=== PATIENT | female | born 1995 | race Caucasian/White ===

== ENCOUNTER 2016-08-22 21:13 | Emergency (ER) | payer MEDICAID, OTHER ==
[2016-08-22 21:19] VITALS: BP 121/76; PULSE 76; RESP 18; TEMP 98.5
--- NOTE | 2016-08-22 22:12 | ED ---
General Adult HPI - General Chief complaint: Recheck/Abnormal Lab/Rx Stated complaint: [facility] Time Seen by Provider: 08/22/16 21:26 Source: patient, RN notes reviewed Mode of arrival: ambulatory Limitations: no limitations - History of Present Illness Initial comments: Patient 20-year-old female who presents emergency room today with chief complaint of body fluid exposure. 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 States she immediately irrigated the left eye. Patient denies any other complaints or symptoms. Does admit she wears contacts. Patient denies any recent fever, chills, shortness of breath, chest pain, back pain, abdominal pain, nausea or vomiting, numbness or tingling, dysuria or hematuria, constipation or diarrhea, headaches or visual changes, or any other complaints. - Related Data Previous Rx's Medication Instructions Recorded Dicyclomine [Bentyl] 20 mg PO QID #15 tablet 01/25/15 Famotidine [Pepcid] 20 mg PO DAILY #20 tablet 01/25/15 Hydrocodone/Acetaminophen [[place] 1 each PO Q6HR PRN #20 tab 01/25/15 5-325] Ondansetron Odt [Zofran ODT] 4 mg PO Q8HR PRN #10 tab 01/25/15 Allergies Allergy/AdvReac Type Severity Reaction Status Date / Time No Known Allergies Allergy Verified 01/25/15 03:29 Review of Systems ROS Statement: Those systems with pertinent positive or pertinent negative responses have been documented in the HPI. ROS Other: All systems not noted in ROS Statement are negative. Past Medical History Past Medical History: No Reported History Additional Past Medical History / Comment(s): KIDNEY STONE History of Any Multi-Drug Resistant Organisms: None Reported Additional Past Surgical History / Comment(s): implanon Past Psychological History: No Psychological Hx Reported Smoking Status: Never smoker Past Alcohol Use History: None Reported Past Drug Use History: None Reported General Exam - General Exam Comments Initial Comments: General: The patient is awake and alert, in no distress, and does not appear acutely ill. Eye: Pupils are equal, round and reactive to light, extra-ocular movements are intact. No nystagmus. There is normal conjunctiva bilaterally. No signs of icterus. Ears, nose, mouth and throat: There are moist mucous membranes and no oral lesions. Neck: The neck is supple, there is no tenderness or JVD. Musculoskeletal: Normal ROM, no tenderness. Strength 5/5. Sensation intact. Pulses equal bilaterally 2+. Neurological: A&O x 3. CN II-XII intact, There are no obvious motor or sensory deficits. Coordination appears grossly intact. Speech is normal. Skin: Skin is warm and dry and no rashes or lesions are noted. Limitations: no limitations Course Vital Signs 08/22/16 21:16 Temperature 98.5 F Pulse Rate 76 Respiratory 18 Rate Blood Pressure 121/76 O2 Sat by Pulse 100 Oximetry Medical Decision Making - Medical Decision Making Patient's labs drawn here in emergency room. Patient's left eye irrigated here in the emergency room. Disposition Clinical Impression: Employee exposure to body fluids Disposition: HOME SELF-CARE Condition: Good Instructions: Postexposure Prophylaxis (ED) Additional Instructions: Please follow with employee health as discussed.
== END 2016-08-22 23:30 | disposition home or self-care (01) ==
LOC: EC 21:13
DX: Z77.21 Contact with and (suspected) exposure to potentially hazardous body fluids (principal); Z79.3 Long term (current) use of hormonal contraceptives; Z79.899 Other long term (current) drug therapy
CPT/HCPCS: 99283

== ENCOUNTER 2017-01-07 21:07 | Emergency (ER) | payer MEDICAID, OTHER ==
[2017-01-07 21:11] VITALS: RESP 18
--- NOTE | 2017-01-07 21:24 | ED ---
General Adult HPI - General Chief complaint: Extremity Injury, Lower Stated complaint: Foot Injury Time Seen by Provider: 01/07/17 21:18 Source: patient, RN notes reviewed, old records reviewed Mode of arrival: ambulatory Limitations: no limitations - History of Present Illness Initial comments: This is a 21-year-old female here for evaluation of foot pain. Severe right foot pain. Patient was performing or shortness today. Was stepped on by horse. Denies any trauma, patient did finish performances able to walk on foot with no difficulty. Patient did take Motrin with no help - Related Data Home Medications Medication Instructions Recorded Confirmed Cider Vinegar [Apple Cider Vinegar] 300 mg PO DAILY 08/22/16 01/07/17 Coconut Oil Capsules 1 cap PO DAILY 08/22/16 01/07/17 Desvenlafaxine Succinate [Pristiq] 50 mg PO DAILY 08/22/16 01/07/17 Erythromycin Base/Ethanol 1 applic TOPICAL DAILY 08/22/16 01/07/17 [Erythromycin 2% Gel] Etonogestrel/Ethinyl Estradiol 1 ring VAGINAL Q28D 08/22/16 01/07/17 [Nuvaring Vaginal Ring] Keratin 1 cap PO DAILY 08/22/16 01/07/17 Minocycline HCl [Minocin] 100 mg PO DAILY 08/22/16 01/07/17 Rifaximin [Xifaxan] 550 mg PO TID 08/22/16 01/07/17 Tretinoin [Tretinoin] 1 applic TOPICAL DAILY 08/22/16 01/07/17 Allergies Allergy/AdvReac Type Severity Reaction Status Date / Time No Known Allergies Allergy Verified 01/07/17 21:11 Review of Systems ROS Statement: Those systems with pertinent positive or pertinent negative responses have been documented in the HPI. ROS Other: All systems not noted in ROS Statement are negative. Past Medical History Past Medical History: No Reported History Additional Past Medical History / Comment(s): KIDNEY STONE History of Any Multi-Drug Resistant Organisms: None Reported Additional Past Surgical History / Comment(s): implanon Past Psychological History: No Psychological Hx Reported Smoking Status: Never smoker Past Alcohol Use History: None Reported Past Drug Use History: None Reported General Exam Limitations: no limitations General appearance: alert, in no apparent distress Head exam: Present: atraumatic, normocephalic, normal inspection Eye exam: Present: normal appearance, PERRL, EOMI. Absent: scleral icterus, conjunctival injection, periorbital swelling ENT exam: Present: normal exam, mucous membranes moist Neck exam: Present: normal inspection. Absent: tenderness, meningismus, lymphadenopathy Respiratory exam: Present: normal lung sounds bilaterally. Absent: respiratory distress, wheezes, rales, rhonchi, stridor Cardiovascular Exam: Present: regular rate, normal rhythm, normal heart sounds. Absent: systolic murmur, diastolic murmur, rubs, gallop, clicks GI/Abdominal exam: Present: soft, normal bowel sounds. Absent: distended, tenderness, guarding, rebound, rigid Extremities exam: Present: normal inspection, full ROM, normal capillary refill. Absent: tenderness, pedal edema, joint swelling, calf tenderness Back exam: Present: normal inspection Neurological exam: Present: alert, oriented X3, CN II-XII intact Psychiatric exam: Present: normal affect, normal mood Skin exam: Present: warm, dry, intact, normal color. Absent: rash Course Vital Signs 01/07/17 01/07/17 21:08 22:26 Temperature 97.1 F L 98.8 F Pulse Rate 98 69 Respiratory 18 18 Rate Blood Pressure 120/80 119/61 O2 Sat by Pulse 99 97 Oximetry Medical Decision Making - Medical Decision Making 21 female DEL with right foot pain, right foot trauma right foot contusion. X- ray negative for fracture. Patient can be discharged home - Radiology Data Radiology results: report reviewed (X-ray right foot is negative for fracture), image reviewed Disposition Clinical Impression: Foot contusion, Foot trauma Disposition: HOME SELF-CARE Condition: Good Instructions: Foot Contusion (ED) Referrals: Marty Billy DO [Primary Care Provider] - 1-2 days
--- NOTE | 2017-01-07 21:46 | XR ---
EXAMINATION TYPE: XR foot complete RT DATE OF EXAM: 01/07/2017 CLINICAL HISTORY: Right foot pain after injury. TECHNIQUE: Frontal, lateral, and oblique images of the right foot are obtained. COMPARISON: None FINDINGS: There is no acute fracture/dislocation evident in the right foot. The Rivera's toe is pre sent. The joint spaces in the right foot appear within normal limits. The overlying soft tissue appe ars unremarkable. IMPRESSION: There is no acute fracture or dislocation in the right foot.
[2017-01-07 22:26] VITALS: BP 119/61; PULSE 69; TEMP 98.8
--- NOTE | 2017-01-10 03:20 | CDI ---
Documentation Clarification OP Dear Sarath MCCONNELL, DO Please add addendum for HPI and Physical examination and MDM. Thank you, bobby. Customer Support Analyst. if you have any questions please contact remote encoding operations supervisor at [phone] [facility]
== END 2017-01-07 22:26 | disposition home or self-care (01) ==
LOC: EC 21:07
DX: S90.31XA Contusion of right foot, initial encounter (principal); Z79.3 Long term (current) use of hormonal contraceptives; Z79.899 Other long term (current) drug therapy; W55.19XA Other contact with horse, initial encounter; Y93.89 Activity, other specified
CPT/HCPCS: 99284

== ENCOUNTER 2017-10-19 10:07 | Observation (INO) | payer MEDICAID ==
[2017-10-19] MEDS ORDERED: SODIUM CHLORIDE 0.9% 500 ML IV STA (10:35)
[2017-10-19] MEDS ORDERED: ONDANSETRON 4 MG/2 ML VIAL IVP STA (10:35)
[2017-10-19] MEDS ORDERED: PANTOPRAZOLE 40 MG/10 ML VIAL IVP STA (10:35)
--- NOTE | 2017-10-19 10:41 | ED ---
General Adult HPI - General Chief complaint: Abdominal Pain Stated complaint: abd pain Time Seen by Provider: 10/19/17 10:22 Source: patient, family, RN notes reviewed Mode of arrival: ambulatory Limitations: no limitations - History of Present Illness Initial comments: Chief complaint and history of present illness is a 21-year-old female here with his significant other. The patient reports for the past 3 days been having moderately severe epigastric pain. Mild nausea today. Denies any change in appetite though. Patient reports she's had this happen several times in the past usually lasted 20 minutes and then goes away. She states she's tried antacids in the past without relief. - Related Data Home Medications Medication Instructions Recorded Confirmed Minocycline HCl [Minocin] 100 mg PO DAILY 08/22/16 10/19/17 Docusate [Colace] 100 mg PO ONCE PRN 10/19/17 10/19/17 Mag Carb/Aluminum Hydrox/Algin 30 ml PO ONCE PRN 10/19/17 10/19/17 [Gaviscon Liquid] Allergies Allergy/AdvReac Type Severity Reaction Status Date / Time No Known Allergies Allergy Verified 10/19/17 10:24 Review of Systems ROS Statement: Those systems with pertinent positive or pertinent negative responses have been documented in the HPI. Review of systems; patient has an appointment tomorrow follow-up with family physician concerning chronic headaches over the past several months. Patient denying any sore throat: No visual acuity changes denies any chest pain or shortness of breath. She has discomfort in the epigastric region which is exquisite changes mild touching the area increases the pain. The pain does not radiate to the back though it does radiate mildly to the left nausea today to the pains been on again off again for 3 days. No change in frequency urgency or dysuria. No change in color of the stool. No neuro deficit complaints. All systems are reviewed. Patient reports she finished her menstrual cycle yesterday. Past medical problems at all bowel syndrome, kidney stones. The patient's surgeries none. Family history mother had a recent breast biopsy. Patient denies ALLERGIES. Nonsmoker. The patient did have alcohol a day prior to the beginning of this discomfort. When the past has not been related to alcohol ROS Other: All systems not noted in ROS Statement are negative. Past Medical History Past Medical History: No Reported History Additional Past Medical History / Comment(s): KIDNEY STONE History of Any Multi-Drug Resistant Organisms: None Reported Additional Past Surgical History / Comment(s): implanon Past Psychological History: No Psychological Hx Reported Smoking Status: Never smoker Past Alcohol Use History: None Reported Past Drug Use History: None Reported General Exam - General Exam Comments Initial Comments: General: The patient is awake and alert, here with moderately tender epigastric region. Nausea but no vomiting. Vital signs temperature 98.2 pulse 84 respiratory rate 18 pulse ox 90% room air blood pressure 136/82 Eye: Pupils are equal, round and reactive to light, extra-ocular movements are intact ; there is normal conjunctiva bilaterally. No signs of icterus. Ears, nose, mouth and throat: There are moist mucous membranes and no oral lesions. Neck: The neck is supple, there is no tenderness, no JVD or lymphadenopathy. Cardiovascular: There is a regular rate and rhythm. No murmur, rub or gallop is appreciated. Respiratory: Lungs are clear to auscultation, respirations are non-labored, breath sounds are equal. No wheezes, stridor, rales, or rhonchi. Gastrointestinal: Examination of the abdomen shows moderately severe epigastric discomfort with voluntary guarding. Mild discomfort to the left upper quadrant. Negative Daniel sign. No significant rebound or referred pain. Patient complains being nauseated earlier. No change in bowel habits. No change in frequency urgency, or dysuria. Back: There is no tenderness to palpation in the midline. There is no obvious deformity. Musculoskeletal: Normal ROM, no tenderness, There is no pedal edema. There is no calf tenderness or swelling. Neurological: No complaints of weakness, no dizziness. No neuro deficits complained of none noted. Skin: Skin is warm and dry and no rashes or lesions are noted. Psychiatric: Cooperative, Limitations: no limitations Course Vital Signs 10/19/17 10:10 Temperature 98.2 F Pulse Rate 84 Respiratory 18 Rate Blood Pressure 136/82 O2 Sat by Pulse 98 Oximetry Medical Decision Making - Medical Decision Making Medical decision making; this is a 22-year-old female here with his significant other. Complaining of epigastric pain. X-ray was performed reviewed by radiologist's full report was reviewed. His final impression is overall nonobstructive bowel gas pattern. As read by Dr. russ Labs show white count of 6.6 hemoglobin 14 hematocrit of 42.9. Urine clean no signs of infection and negative . Potassium 3.9. BUN 12 creatinine 0.7 GFR greater than 90. Glucose 83. Plasma lactic acid normal 1.2 and amylase lipase normal limits. The patient will be given the GI cocktail with lidocaine. Patient denies any significant relief from the discomfort of the epigastric pain. Ultrasound of the right upper quadrant reported by radiologist as essentially negative for gallstone, gallbladder disease. We discussed persistent gastritis reflux esophagitis hilar hernias ulcer disease etc. patient still having pain even after 2 mg morphine. The patient be admitted with GI consultation. - Lab Data Result diagrams: 10/19/17 10:52 10/19/17 10:52 Lab Results 10/19/17 10/19/17 10/19/17 Range/Units 10:52 10:52 10:52 WBC 6.6 (3.8-10.6) k/uL RBC 4.69 (3.80-5.40) m/uL Hgb 14.3 (11.4-16.0) gm/dL Hct 42.9 (34.0-46.0) % MCV 91.5 (80.0-100.0) fL MCH 30.5 (25.0-35.0) pg MCHC 33.3 (31.0-37.0) g/dL RDW 12.0 (11.5-15.5) % Plt Count 261 (150-450) k/uL Neutrophils % 64 % Lymphocytes % 20 % Monocytes % 9 % Eosinophils % 4 % Basophils % 1 % Neutrophils # 4.3 (1.3-7.7) k/uL Lymphocytes # 1.3 (1.0-4.8) k/uL Monocytes # 0.6 (0-1.0) k/uL Eosinophils # 0.3 (0-0.7) k/uL Basophils # 0.0 (0-0.2) k/uL Sodium 144 (137-145) mmol/L Potassium 3.9 (3.5-5.1) mmol/L Chloride 104 (98-107) mmol/L Carbon Dioxide 27 (22-30) mmol/L Anion Gap 13 mmol/L BUN 12 (7-17) mg/dL Creatinine 0.70 (0.52-1.04) mg/dL Est GFR (CKD-EPI)AfAm >90 (>60 ml/min/1.73 sqM) Est GFR (CKD-EPI)NonAf >90 (>60 ml/min/1.73 sqM) Glucose 83 (74-99) mg/dL Plasma Lactic Acid Rom (0.7-2.0) mmol/L Calcium 9.8 (8.4-10.2) mg/dL Total Bilirubin 0.5 (0.2-1.3) mg/dL AST 22 (14-36) U/L ALT 28 (9-52) U/L Alkaline Phosphatase 43 (38-126) U/L Total Protein 7.2 (6.3-8.2) g/dL Albumin 4.6 (3.5-5.0) g/dL Amylase 50 (30-110) U/L Lipase 75 (23-300) U/L Urine Color Urine Appearance (Clear) Urine pH (5.0-8.0) Ur Specific [place] (1.001-1.035) Urine Protein (Negative) Urine Glucose (UA) (Negative) Urine Ketones (Negative) Urine Blood (Negative) Urine Nitrite (Negative) Urine Bilirubin (Negative) Urine Urobilinogen (<2.0) mg/dL Ur Leukocyte Esterase (Negative) Urine HCG, Qual Not Detected (Not Detectd) 10/19/17 10/19/17 Range/Units 10:52 10:52 WBC (3.8-10.6) k/uL RBC (3.80-5.40) m/uL Hgb (11.4-16.0) gm/dL Hct (34.0-46.0) % MCV (80.0-100.0) fL MCH (25.0-35.0) pg MCHC (31.0-37.0) g/dL RDW (11.5-15.5) % Plt Count (150-450) k/uL Neutrophils % % Lymphocytes % % Monocytes % % Eosinophils % % Basophils % % Neutrophils # (1.3-7.7) k/uL Lymphocytes # (1.0-4.8) k/uL Monocytes # (0-1.0) k/uL Eosinophils # (0-0.7) k/uL Basophils # (0-0.2) k/uL Sodium (137-145) mmol/L Potassium (3.5-5.1) mmol/L Chloride (98-107) mmol/L Carbon Dioxide (22-30) mmol/L Anion Gap mmol/L BUN (7-17) mg/dL Creatinine (0.52-1.04) mg/dL Est GFR (CKD-EPI)AfAm (>60 ml/min/1.73 sqM) Est GFR (CKD-EPI)NonAf (>60 ml/min/1.73 sqM) Glucose (74-99) mg/dL Plasma Lactic Acid Rom 1.2 (0.7-2.0) mmol/L Calcium (8.4-10.2) mg/dL Total Bilirubin (0.2-1.3) mg/dL AST (14-36) U/L ALT (9-52) U/L Alkaline Phosphatase (38-126) U/L Total Protein (6.3-8.2) g/dL Albumin (3.5-5.0) g/dL Amylase (30-110) U/L Lipase (23-300) U/L Urine Color Light Yellow Urine Appearance Clear (Clear) Urine pH 7.0 (5.0-8.0) Ur Specific [place] 1.005 (1.001-1.035) Urine Protein Negative (Negative) Urine Glucose (UA) Negative (Negative) Urine Ketones Negative (Negative) Urine Blood Negative (Negative) Urine Nitrite Negative (Negative) Urine Bilirubin Negative (Negative) Urine Urobilinogen <2.0 (<2.0) mg/dL Ur Leukocyte Esterase Negative (Negative) Urine HCG, Qual (Not Detectd) Disposition Clinical Impression: Abdominal pain Disposition: ADMITTED IP TO THIS HOSP Condition: Fair Is patient prescribed a controlled substance at d/c from ED?: No Referrals: Marty Billy DO [Primary Care Provider] - 1-2 days
[2017-10-19] MEDS: SODIUM CHLORIDE 0.9% 1,000 ML IV STA ×2 (10:45→17:03)
[2017-10-19 11:05] LABS: Appearance,Urine Clear (Clear); Bilirubin,Urine Negative (Negative); Blood,Urine Negative (Negative); Color,Urine Light Yellow; Glucose,Urine (UA) Negative (Negative); Ketones,Urine Negative (Negative); Leukocyte Esterase,Urine Negative (Negative); Nitrite,Urine Negative (Negative); Protein,Urine Negative (Negative); Specific Gravity,Urine 1.005 (1.001-1.035); Urobilinogen,Urine <2.0 mg/dL (<2.0)
[2017-10-19 11:07] LABS: Basophils % (A) 1 %; Eosinophils # (A) 0.3 k/uL (0-0.7); Eosinophils % (A) 4 %; HCT 42.9 % (34.0-46.0); HGB 14.3 gm/dL (11.4-16.0); Lymphocytes # (A) 1.3 k/uL (1.0-4.8); Lymphocytes % (A) 20 %; MCH 30.5 pg (25.0-35.0); MCHC 33.3 g/dL (31.0-37.0); MCV 91.5 fL (80.0-100.0); Mean Platelet Volume 7.2; Monocytes # (A) 0.6 k/uL (0-1.0); Monocytes % (A) 9 %; Neutrophils # (A) 4.3 k/uL (1.3-7.7); Neutrophils % (A) 64 %; Platelet Count 261 k/uL (150-450); RBC 4.69 m/uL (3.80-5.40); WBC 6.6 k/uL (3.8-10.6)
--- NOTE | 2017-10-19 11:13 | XR ---
EXAMINATION TYPE: XR abdomen 2V DATE OF EXAM: 10/19/2017 CLINICAL HISTORY: Abdominal pain for 3 days TECHNIQUE: Supine and upright views of the abdomen are obtained. COMPARISON: CT abdomen and pelvis and abdominal x-ray January 28, 2014 FINDINGS: Scattered gas is seen in non-distended stomach and small bowel loops. Gas and fecal mater ial is seen in non-distended colon. There is no visceromegaly, pneumoperitoneum, or abnormal calcif ication appreciated. The lung bases are clear and the osseous structures are intact. Overlying metal lic nipple ornaments and umbilical ornament are present on initial images. IMPRESSION: Overall nonobstructive bowel gas pattern.
[2017-10-19 11:20] LABS: ALT 28 U/L (9-52); AST 22 U/L (14-36); Albumin 4.6 g/dL (3.5-5.0); Alkaline Phosphatase 43 U/L (38-126); Amylase 50 U/L (30-110); Anion Gap 13 mmol/L; Blood Urea Nitrogen 12 mg/dL (7-17); Calcium 9.8 mg/dL (8.4-10.2); Carbon Dioxide 27 mmol/L (22-30); Chloride 104 mmol/L (98-107); Glucose 83 mg/dL (74-99); Lipase 75 U/L (23-300); Potassium 3.9 mmol/L (3.5-5.1); Sodium 144 mmol/L (137-145); Total Bilirubin 0.5 mg/dL (0.2-1.3); Total Protein 7.2 g/dL (6.3-8.2)
[2017-10-19] MEDS ORDERED: MAG HYDROX/AL HYDROX/SIMETH 30 ML, HYOSCYAMINE ELIXIR 10 ML, CIMETIDINE HCL 300 MG, LID... PO STA ×4 (11:21)
--- NOTE | 2017-10-19 12:38 | US ---
EXAMINATION TYPE: US abdomen limited DATE OF EXAM: 10/19/2017 COMPARISON: US 2014, CT 2013 CLINICAL HISTORY: Moderately severe epigastric pain, evaluate gallbladder. Epigastric pain and N/V x 4 days EXAM MEASUREMENTS: Liver Length: 16.7 cm Gallbladder Wall: 0.2 cm CBD: 0.4 cm Right Kidney: 11.1 x 4.3 x 4.8 cm Pancreas: visualized portions wnl, limited by overlying midline bowel gas Liver: wnl Gallbladder: wnl Evidence for sonographic Daniel's sign: yes CBD: wnl Right Kidney: wnl No significant abnormality seen at this time to account for patient's clinical symptoms. IMPRESSION: No shadowing mobile gallstones or ultrasound evidence for acute cholecystitis.
[2017-10-19] MEDS ORDERED: MORPHINE SULFATE 2 MG/ML SYRINGE IVP STA (12:40)
[2017-10-19] MEDS ORDERED: HYDROmorphone 0.5 MG/0.5 ML SYRINGE IVP PRN (13:03)
[2017-10-19] MEDS ORDERED: NALOXONE 0.4 MG/ML 1 ML VIAL IV PRN (13:03)
[2017-10-19] MEDS ORDERED: ONDANSETRON 4 MG/2 ML VIAL IVP PRN (13:03)
[2017-10-19] MEDS ORDERED: METOCLOPRAMIDE 10 MG TAB PO PRN (18:14)
[2017-10-19] MEDS ORDERED: METOCLOPRAMIDE 5 MG/ML 2 ML VIAL IVP PRN (18:14)
[2017-10-19] MEDS ORDERED: SCOPOLAMINE 1.5MG/72HR PATCH TRANSDERM SCH (19:00)
[2017-10-19] MEDS: MAG HYDROX/AL HYDROX/SIMETH 30 ML CUP PO SCH (20:24)
--- NOTE | 2017-10-19 23:21 | HP ---
HISTORY AND PHYSICAL DATE OF ADMISSION: 10/19/2017 DATE OF SERVICE: 10/19/2017 PRESENTING COMPLAINT: Epigastric pain. HISTORY OF PRESENTING COMPLAINT: This is a very pleasant 22-year-old patient who follows with Dr. Billy. The patient for 2 days has been having increasing epigastric pain localized along with several bouts of nausea. No fever. No chills. The patient does occasionally get epigastric pain. Patient does love to eat spicy food. The patient has been taking two Excedrin 2 or 3 times a week for last 4 months after she had a head injury. Prior to that, the patient would occasionally get headaches and she would take Excedrin p.r.n. The patient denies any fever or chills. About 4 months ago, she fell off the horse and she had passed out for a few seconds. Since that time, the patient has been getting regular headaches. The patient did not seek medical attention. No double vision. No weakness. 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 Otherwise, the patient is in good health. Both the parents are present. REVIEW OF SYSTEMS: CONSTITUTIONAL: Tired. HEENT: Headache, often at the back of the head and the neck. RESPIRATORY: None. CARDIOVASCULAR: None. GASTROINTESTINAL: Nausea, retching. GENITOURINARY: None. MUSCULOSKELETAL: Some neck pain. DERMATOLOGICAL: None. HEMATOLOGIC: None. LYMPHATIC: None. PSYCHIATRY: None. NEUROLOGICAL: None. PAST MEDICAL HISTORY: Kidney stones and headaches. PAST SURGERY: Implanon removed 1.5 years ago. SOCIAL HISTORY: No smoking, alcohol rarely. Lives with her boyfriend. 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 FAMILY HISTORY: Father had heart problems, may be getting a heart transplant. HOME MEDICATIONS: MEDICATIONS: 1. Minocycline 100 mg p.o. daily. 2. Gaviscon 30 mL p.o. p.r.n. 3. Colace 100 mg p.r.n. ALLERGIES: None. PHYSICAL EXAMINATION: Temperature 98.2, pulse 85, respiratory 18, blood pressure 136/82, pulse ox 98% on room air. GENERAL APPEARANCE: Average build, lying in bed, somewhat tired-appearing. EYES: Pupils equal. Conjunctivae normal. HEENT: External appearance of nose and ears normal. Oral cavity normal. NECK: JVD not raised. Mass not palpable. Respiratory effort normal. Lungs are clear. CARDIOVASCULAR: First and second sounds normal. No edema. ABDOMEN: Epigastric tenderness. No guarding or rigidity. Liver and spleen not palpable. LYMPHATICS: No lymph node palpable in the neck or axillae. PSYCHIATRY: Alert and oriented x3. Mood and affect anxious-appearing. NEUROLOGICAL: Pupils equal. Cranial nerves grossly intact. Power and sensation grossly intact. INVESTIGATIONS: White count 6.6, hemoglobin 14.3, potassium 3.9. UA negative. Abdominal x-ray unremarkable. Abdominal ultrasound, no gallstones. ASSESSMENT: 1. Patient with severe epigastric pain, has been taking Excedrin at least two to three times a week for the last 4 months and also was taking that before that p.r.n., most likely we are dealing here with either severe gastritis or peptic ulcer disease. 2. Postconcussion headache. The patient had a fall about 4 weeks ago. Patient has no neurological deficits. Patient has been rather active. 3. Persistent nausea from above. PLAN: Patient initially put on Zofran, which did not help and the patient is put on Reglan and a scopolamine patch. We will also give Tums [id number] and IV PPI. Will consult GI with a view to endoscopy in the morning. The patient also does take minocycline that could be contributing to what is called a pill esophagitis. The patient will be kept on clear liquids. MMODL / IJN: [id number] /
[2017-10-20] MEDS: MAG HYDROX/AL HYDROX/SIMETH 30 ML CUP PO SCH ×2 (01:11→09:02)
[2017-10-20] MEDS: ENOXAPARIN 40 MG/0.4 ML SYRINGE SQ SCH ×2 (01:11→09:02)
[2017-10-20] MEDS: LACTATED RINGERS 1,000 ML IV SCH ×3 (06:06→12:34)
[2017-10-20 07:03] LABS: ALT 26 U/L (9-52); AST 15 U/L (14-36); Albumin 3.2 g/dL (3.5-5.0); Alkaline Phosphatase 35 U/L (38-126); Anion Gap 8 mmol/L; Blood Urea Nitrogen 9 mg/dL (7-17); Calcium 8.6 mg/dL (8.4-10.2); Carbon Dioxide 28 mmol/L (22-30); Chloride 106 mmol/L (98-107); Glucose 90 mg/dL (74-99); Potassium 4.2 mmol/L (3.5-5.1); Sodium 142 mmol/L (137-145); Total Bilirubin 0.3 mg/dL (0.2-1.3); Total Protein 5.3 g/dL (6.3-8.2)
[2017-10-20] MEDS ORDERED: PANTOPRAZOLE 40 MG/10 ML VIAL IV SCH (09:00)
--- NOTE | 2017-10-20 10:21 | P.CONS ---
History of Present Illness - Reason for Consult Consult date: 10/20/17 Epigastric pain Requesting physician: Loc Carrillo - History of Present Illness 22-year-old female history of IBS-D presents with acute on chronic epigastric pain nausea rare emesis 18 months exacerbated earlier this week. Pain is described as dull achy nausea not associated with meals or other GI symptoms. Denies weight loss fever chills hematemesis hematochezia melena. She has been evaluated in the past regarding this pain in the emergency room thought to be related to IBS possible gallbladder. She has tried [id number] PPI without improvement. In the past she has taken Bentyl which did improve her symptoms somewhat but presently is not taking it. Home medications include minocine for dermatological reasons however she has been on this medication for years and does not feel its contributing to her presentation. No history of EGD. Abdominal x-rays ultrasound unremarkable. Biochemically white count hemoglobin electrolytes liver function tests lipase within normal limits. Review of Systems Constitutional: Denies fever, chills, sweats, weight gain, or loss. HEENT: Negative for migraines, blurred vision or loss, earaches, drainage, tinnitus, oral mucosal lesions, dysphagia, or odynophagia. CARDIAC: Negative for chest pain, arrhythmias, or palpitation. RESPIRATORY: Negative for shortness of breath, hemoptysis, cough, or sputum production. GI: See HPI for pertinent findings. : Negative for hematuria, urgency, frequency, polyuria, or dysuria. GYNc: Denies possibility of . Negative vaginal discharge. MUSCULOSKELETAL: Negative for muscle aches, swelling, arthritis, and arthralgias. NEUROLOGIC: Negative for stroke or TIA. ENDOCRINE: Negative for thyroid problems. SKIN: Negative for rash or itching. PSYCHIATRIC: Negative history for depression and anxiety Past Medical History Past Medical History: No Reported History Additional Past Medical History / Comment(s): Pt states she fell of her horse about 4 months ago and hit her head and lost consciousness-she has been having headaches daily ever since, past abdominal pain-unknown cause, kidney stone- passed on her own, mononucleosis. History of Any Multi-Drug Resistant Organisms: None Reported Additional Past Surgical History / Comment(s): implanon-removed 1.5 years ago Additional Past Anesthesia/Blood Transfusion Reaction / Comm: Pt has never had anesthesia. Smoking Status: Never smoker - Past Family History Father Additional Family Medical History / Comment(s): Father has heart problems and may end up needing heart transplant. Mother Family Medical History: Hypertension Additional Family Medical History / Comment(s): Mother has had alot of benign breast biopsies. Medications and Allergies Home Medications Medication Instructions Recorded Confirmed Type Minocycline HCl [Minocin] 100 mg PO DAILY 08/22/16 10/19/17 History Docusate [Colace] 100 mg PO ONCE PRN 10/19/17 10/19/17 History Mag Carb/Aluminum Hydrox/Algin 30 ml PO ONCE PRN 10/19/17 10/19/17 History [Gaviscon Liquid] Allergies Allergy/AdvReac Type Severity Reaction Status Date / Time No Known Allergies Allergy Verified 10/19/17 10:24 Physical Exam Vitals: Vital Signs Temp Pulse Pulse Pulse Resp BP BP 10/20/17 08:15 98.1 F 48 L 19 103/59 10/19/17 22:00 98.0 F 57 L 18 87/49 10/19/17 20:14 97.1 F L 51 L 20 97/53 10/19/17 15:00 97.6 F 56 L 18 112/65 10/19/17 13:36 98.3 F 62 16 126/72 10/19/17 10:10 98.2 F 84 18 136/82 Pulse Ox 10/20/17 08:15 98 10/19/17 22:00 98 10/19/17 20:14 98 10/19/17 15:00 98 10/19/17 13:36 100 10/19/17 10:10 98 Intake and Output 10/19/17 10/20/17 10/20/17 22:59 06:59 14:59 Intake Total 460 580 Balance 460 580 Intake: Oral 460 580 Other: # Emeses 1 General appearance: The patient is alert, oriented, in no acute distress. HET: Head is normocephalic and atraumatic. Pupils are equal and reactive. Oropharynx is clear without lesions. Neck: Supple without lymphadenopathy. Trachea midline. Heart: S1 S2. Regular rate and rhythm. Lungs: No crackles or wheezes are heard. Abdomen: Soft, midepigastric soreness, nondistended with bowel sounds. No peritoneal signs. No palpable organomegaly or masses. Extremities: Normal skin color and turgor. No cyanosis, rash, ulceration, clubbing, or edema. Radial and pedal pulses are 2/4 bilaterally. Neurological: No focal deficits. Strength and sensation are grossly intact. Results CBC & Chem 7: 10/19/17 10:52 10/20/17 06:02 Labs: Abnormal Lab Results - Last 24 Hours (Table) 10/20/17 Range/Units 06:02 Alkaline Phosphatase 35 L (38-126) U/L Total Protein 5.3 L (6.3-8.2) g/dL Albumin 3.2 L (3.5-5.0) g/dL Abdominal x-ray: report reviewed (Dr. Humphrey) US - abdomen: report reviewed (Dr. Humphrey) Assessment and Plan (1) Chronic epigastric pain Current Visit: Yes Status: Acute Code(s): R10.13 - EPIGASTRIC PAIN; G89.29 - OTHER CHRONIC PAIN SNOMED Code(s): 68197143 (2) History of IBS Current Visit: Yes Status: Acute Code(s): Z87.19 - PERSONAL HISTORY OF OTHER DISEASES OF THE DIGESTIVE SYSTEM SNOMED Code(s): 50779816507666 Plan: 1. EGD. Hold Lovenox. 2. Nothing by mouth except medications. 3. Protonix 40 mg IV daily. 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 The patient has indicated understanding and acceptance of the risks and procedures discussed. Thank you for this kind referral and the opportunity to participate in the care of your patient. This consultation was discussed with Dr. Humphrey. The impression and plan of care have been directed as dictated.
[2017-10-20 12:36] VITALS: BP 105/65; PULSE 55; RESP 16; TEMP 98
[2017-10-20] MEDS ORDERED: PROPOFOL 10 MG/ML 20 ML VIAL IV ONE (12:45)
[2017-10-20] MEDS ORDERED: LIDOCAINE 1% INJ 10MG/ML (20 ML MDV) ONE (12:45)
[2017-10-20] MEDS ORDERED: IV FLUID CONTINUATION 1,000 ML IV ONE (12:49)
--- NOTE | 2017-10-20 13:07 | P.PCN ---
Date of Procedure: 10/20/17 Procedure(s) Performed: BRIEF HISTORY: Patient is a 22-year-old, pleasant, white female, scheduled for an upper endoscopy as a part of evaluation of epigastric discomfort and nausea for the last 1 year duration. In the past she was treated with PPI and Bentyl with no help. She is hence scheduled for an upper endoscopy to evaluate further.. PROCEDURE PERFORMED: Esophagogastroduodenoscopy With biopsy. PREOPERATIVE DIAGNOSIS:Chronic epigastric pain and nausea of 1 year duration]. IV sedation per anesthesia. PROCEDURE: After informed consent was obtained, the patient was brought into the endoscopy unit. IV sedation was administered by Anesthesia under continuous monitoring. Initially the Olympus GIF-140 video endoscope was inserted into the mouth. Esophagus intubated without any difficulty. It was gradually advanced into the stomach and duodenum and carefully examined. The bulb and the second part of the duodenum appeared normal. biopsies were done from the duodenum to rule out celiac disease. The scope at this time was withdrawn to the stomach, adequately insufflated with air, and upon careful examination, mucosa of the antrum, mild gastritis and biopsies were done from this area. The body, cardia and the fundus appeared normal. The scope was then withdrawn into the esophagus. The GE junction was located at 39 cm from the incisors. The esophagus appeared normal. There were no erosions or ulcerations seen and the patient tolerated the procedure well. IMPRESSION: 1 Mild antral gastritis]. 2 No evidence of esophagitis or peptic ulcer disease. RECOMMENDATIONS: The findings of this examination were discussed with the patient as well as a family. She was advised to follow with the biopsy results. In the meantime she can be tried on Carafate 1 g 4 times daily to see for any symptomatic improvement.
--- NOTE | 2017-10-20 22:49 | DS ---
DISCHARGE SUMMARY DATE OF ADMISSION: 10/19/2017. DATE OF DISCHARGE: 10/20/2017 FINAL DIAGNOSES: 1. Acute epigastric pain from gastritis secondary to use off Excedrin. 2. Severe nausea secondary to above. 3. Postconcussion headaches. HOSPITAL COURSE: This patient takes Excedrin about 2 or 3 times a week, presented with severe epigastric pain, nausea, not able to keep anything down. EGD showed some evidence of gastritis. There was no peptic ulcer, but as often found, the patient's symptoms can often be out of proportion to what you are finding. The patient is able to tolerate some diet. EXAMINATION: Some epigastric tenderness. CONSULTATION: Dr. Chucky Humphrey. DISCHARGE MEDICATIONS: 1. Minocycline 100 mg p.o. daily. 2. Prilosec 20 mg p.o. a.c. b.i.d. 3. Carafate 1 g p.o. t.i.d. FOLLOWUP: With Dr. Chucky Humphrey on 12/07/2017, follow up with Dr. Billy in 1 week. DIET: Full liquid soft diet, advance as tolerated. The patient was given a note to stay off work for the next 3-4 days. Care was discussed with the patient and her boyfriend the bedside. MMODL / IJN: [id number] /
== END 2017-10-20 14:53 | disposition home or self-care (01) ==
LOC: EC 10:07 → 6PED 13:03
PROVIDERS: ADMIT Hospitalist; ATTEND Hospitalist
DX: K29.50 Unspecified chronic gastritis without bleeding (principal); T39.015A Adverse effect of aspirin, initial encounter; G44.309 Post-traumatic headache, unspecified, not intractable; V80.010A Animal-rider injured by fall from or being thrown from horse in noncollision accident, initial encounter; Z87.19 Personal history of other diseases of the digestive system; Z79.2 Long term (current) use of antibiotics; Z87.442 Personal history of urinary calculi; Z82.49 Family history of ischemic heart disease and other diseases of the circulatory system
CPT/HCPCS: 99285 ×2; 96374 ×2; 96375 ×4; 96361 ×4; 96376; 36415; 88305; 80053 ×2; 82150; 83605; 83690; 85025; 81003; 81025; 74019; 76705; 43239; G0378 ×2; J2765; J2405; J2001; J2270; J2704; C9113 ×2; J1170

== ENCOUNTER 2017-10-21 17:45 | Emergency (ER) | payer MEDICAID ==
[2017-10-21] MEDS ORDERED: SODIUM CHLORIDE 0.9% 1,000 ML IV STA (17:51)
[2017-10-21] MEDS ORDERED: ACETAMINOPHEN IV (For NPO) 1,000 MG in EMPTY BAG 1 BAG IVPB STA (17:52)
[2017-10-21] MEDS ORDERED: KETOROLAC 30 MG/ML 1 ML VIAL IVP STA (17:52)
--- NOTE | 2017-10-21 17:58 | ED ---
General Adult HPI - General Chief complaint: Abdominal Pain Stated complaint: ABDOMINAL PAIN Time Seen by Provider: 10/21/17 17:51 Source: patient, RN notes reviewed, old records reviewed Mode of arrival: ambulatory Limitations: no limitations - History of Present Illness Initial comments: This is a 22-year-old female the ER for evaluation. Patient is ER for evaluation of chest pain or bowel pain. Severe epigastric bowel pain radiation right upper quadrant radiation right shoulder. back. Persistent nausea vomiting. No fevers no cough no congestion or recent travel history no sick contacts. Patient was seen and evaluated this facility earlier in the week, no significant improvement in symptoms. Despite taking medication as prescribed. - Related Data Home Medications Medication Instructions Recorded Confirmed Minocycline HCl [Minocin] 100 mg PO DAILY 08/22/16 10/21/17 Previous Rx's Medication Instructions Recorded Omeprazole [PriLOSEC] 20 mg PO AC-BID #60 cap 10/20/17 Sucralfate [Carafate] 1 gm PO TID #90 tablet 10/20/17 Allergies Allergy/AdvReac Type Severity Reaction Status Date / Time No Known Allergies Allergy Verified 10/21/17 17:49 Review of Systems ROS Statement: Those systems with pertinent positive or pertinent negative responses have been documented in the HPI. ROS Other: All systems not noted in ROS Statement are negative. Past Medical History Past Medical History: No Reported History Additional Past Medical History / Comment(s): Pt states she fell of her horse about 4 months ago and hit her head and lost consciousness-she has been having headaches daily ever since, past abdominal pain-unknown cause, kidney stone- passed on her own, mononucleosis. History of Any Multi-Drug Resistant Organisms: None Reported Additional Past Surgical History / Comment(s): implanon-removed 1.5 years ago Additional Past Anesthesia/Blood Transfusion Reaction / Comment(s): Pt has never had anesthesia. Past Psychological History: No Psychological Hx Reported, Anxiety, Depression Smoking Status: Never smoker Past Alcohol Use History: Occasional Past Drug Use History: None Reported - Past Family History Father Additional Family Medical History / Comment(s): Father has heart problems and may end up needing heart transplant. Mother Family Medical History: Hypertension Additional Family Medical History / Comment(s): Mother has had alot of benign breast biopsies. General Exam Limitations: no limitations General appearance: alert, in no apparent distress Head exam: Present: atraumatic, normocephalic, normal inspection Eye exam: Present: normal appearance, PERRL, EOMI. Absent: scleral icterus, conjunctival injection, periorbital swelling ENT exam: Present: normal exam, mucous membranes moist Neck exam: Present: normal inspection. Absent: tenderness, meningismus, lymphadenopathy Respiratory exam: Present: normal lung sounds bilaterally. Absent: respiratory distress, wheezes, rales, rhonchi, stridor Cardiovascular Exam: Present: regular rate, normal rhythm, normal heart sounds. Absent: systolic murmur, diastolic murmur, rubs, gallop, clicks GI/Abdominal exam: Present: soft, normal bowel sounds. Absent: distended, tenderness, guarding, rebound, rigid Extremities exam: Present: normal inspection, full ROM, normal capillary refill. Absent: tenderness, pedal edema, joint swelling, calf tenderness Back exam: Present: normal inspection Neurological exam: Present: alert, oriented X3, CN II-XII intact Psychiatric exam: Present: normal affect, normal mood Skin exam: Present: warm, dry, intact, normal color. Absent: rash Course Vital Signs 10/21/17 10/21/17 10/21/17 17:49 19:15 20:15 Temperature 98.8 F Pulse Rate 74 62 58 L Respiratory 20 20 20 Rate Blood Pressure 148/78 120/70 112/62 O2 Sat by Pulse 100 100 99 Oximetry 10/21/17 10/21/17 21:15 21:30 Temperature Pulse Rate 57 L 59 L Respiratory 20 20 Rate Blood Pressure 123/68 136/56 O2 Sat by Pulse 98 99 Oximetry EKG Findings - EKG Comments: EKG Findings:: EKG shows normal sinus rhythm rate of 65, IL 108, QRS 70, QTc 413 Medical Decision Making - Medical Decision Making 32 female the ER positive bowel pain. Patient has severe epigastric right upper quadrant bowel pain. Patient's second visit for similar complaint. Ultrasound remains normal, CT chest and pelvis is negative. Patient instructed to follow up with surgery, recommend outpatient HIDA scan, insulin time patient will continue to take medications and he prescribed discharged home - Lab Data Result diagrams: 10/21/17 18:30 10/21/17 18:30 Lab Results 10/21/17 10/21/17 10/21/17 Range/Units 18:30 18:30 18:30 WBC 6.2 (3.8-10.6) k/uL RBC 4.31 (3.80-5.40) m/uL Hgb 13.1 (11.4-16.0) gm/dL Hct 38.8 (34.0-46.0) % MCV 89.9 (80.0-100.0) fL MCH 30.4 (25.0-35.0) pg MCHC 33.8 (31.0-37.0) g/dL RDW 12.0 (11.5-15.5) % Plt Count 260 (150-450) k/uL Neutrophils % 57 % Lymphocytes % 28 % Monocytes % 9 % Eosinophils % 3 % Basophils % 1 % Neutrophils # 3.5 (1.3-7.7) k/uL Lymphocytes # 1.7 (1.0-4.8) k/uL Monocytes # 0.6 (0-1.0) k/uL Eosinophils # 0.2 (0-0.7) k/uL Basophils # 0.0 (0-0.2) k/uL PT (9.0-12.0) sec INR (<1.2) APTT (22.0-30.0) sec D-Dimer (<0.60) mg/L FEU Sodium 140 (137-145) mmol/L Potassium 3.8 (3.5-5.1) mmol/L Chloride 102 (98-107) mmol/L Carbon Dioxide 27 (22-30) mmol/L Anion Gap 11 mmol/L BUN 10 (7-17) mg/dL Creatinine 1.10 H (0.52-1.04) mg/dL Est GFR (CKD-EPI)AfAm 82 (>60 ml/min/1.73 sqM) Est GFR (CKD-EPI)NonAf 71 (>60 ml/min/1.73 sqM) Glucose 89 (74-99) mg/dL Plasma Lactic Acid Rom (0.7-2.0) mmol/L Calcium 9.8 (8.4-10.2) mg/dL Phosphorus 3.2 (2.5-4.5) mg/dL Magnesium 1.8 (1.6-2.3) mg/dL Total Bilirubin 0.2 (0.2-1.3) mg/dL GGT <10 L (12-43) U/L AST 22 (14-36) U/L ALT 30 (9-52) U/L Alkaline Phosphatase 41 (38-126) U/L Total Creatine Kinase 55 (30-135) U/L CK-MB (CK-2) <0.2 (0.0-2.4) ng/mL CK-MB (CK-2) Rel Index Troponin I <0.012 (0.000-0.034) ng/mL NT-Pro-B Natriuret Pep pg/mL Total Protein 6.6 (6.3-8.2) g/dL Albumin 4.3 (3.5-5.0) g/dL Lipase 79 (23-300) U/L Urine Color Urine Appearance (Clear) Urine pH (5.0-8.0) Ur Specific Glynn (1.001-1.035) Urine Protein (Negative) Urine Glucose (UA) (Negative) Urine Ketones (Negative) Urine Blood (Negative) Urine Nitrite (Negative) Urine Bilirubin (Negative) Urine Urobilinogen (<2.0) mg/dL Ur Leukocyte Esterase (Negative) Urine WBC (0-5) /hpf Ur Squamous Epith Cells (0-4) /hpf Urine Bacteria (None) /hpf Urine Mucus (None) /hpf 10/21/17 10/21/17 10/21/17 Range/Units 18:30 18:30 18:30 WBC (3.8-10.6) k/uL RBC (3.80-5.40) m/uL Hgb (11.4-16.0) gm/dL Hct (34.0-46.0) % MCV (80.0-100.0) fL MCH (25.0-35.0) pg MCHC (31.0-37.0) g/dL RDW (11.5-15.5) % Plt Count (150-450) k/uL Neutrophils % % Lymphocytes % % Monocytes % % Eosinophils % % Basophils % % Neutrophils # (1.3-7.7) k/uL Lymphocytes # (1.0-4.8) k/uL Monocytes # (0-1.0) k/uL Eosinophils # (0-0.7) k/uL Basophils # (0-0.2) k/uL PT 10.5 (9.0-12.0) sec INR 1.1 (<1.2) APTT 23.2 (22.0-30.0) sec D-Dimer 0.61 H (<0.60) mg/L FEU Sodium (137-145) mmol/L Potassium (3.5-5.1) mmol/L Chloride (98-107) mmol/L Carbon Dioxide (22-30) mmol/L Anion Gap mmol/L BUN (7-17) mg/dL Creatinine (0.52-1.04) mg/dL Est GFR (CKD-EPI)AfAm (>60 ml/min/1.73 sqM) Est GFR (CKD-EPI)NonAf (>60 ml/min/1.73 sqM) Glucose (74-99) mg/dL Plasma Lactic Acid Rom 1.4 (0.7-2.0) mmol/L Calcium (8.4-10.2) mg/dL Phosphorus (2.5-4.5) mg/dL Magnesium (1.6-2.3) mg/dL Total Bilirubin (0.2-1.3) mg/dL GGT (12-43) U/L AST (14-36) U/L ALT (9-52) U/L Alkaline Phosphatase (38-126) U/L Total Creatine Kinase (30-135) U/L CK-MB (CK-2) (0.0-2.4) ng/mL CK-MB (CK-2) Rel Index Troponin I (0.000-0.034) ng/mL NT-Pro-B Natriuret Pep 207 pg/mL Total Protein (6.3-8.2) g/dL Albumin (3.5-5.0) g/dL Lipase (23-300) U/L Urine Color Urine Appearance (Clear) Urine pH (5.0-8.0) Ur Specific Glynn (1.001-1.035) Urine Protein (Negative) Urine Glucose (UA) (Negative) Urine Ketones (Negative) Urine Blood (Negative) Urine Nitrite (Negative) Urine Bilirubin (Negative) Urine Urobilinogen (<2.0) mg/dL Ur Leukocyte Esterase (Negative) Urine WBC (0-5) /hpf Ur Squamous Epith Cells (0-4) /hpf Urine Bacteria (None) /hpf Urine Mucus (None) /hpf 10/21/17 Range/Units 19:40 WBC (3.8-10.6) k/uL RBC (3.80-5.40) m/uL Hgb (11.4-16.0) gm/dL Hct (34.0-46.0) % MCV (80.0-100.0) fL MCH (25.0-35.0) pg MCHC (31.0-37.0) g/dL RDW (11.5-15.5) % Plt Count (150-450) k/uL Neutrophils % % Lymphocytes % % Monocytes % % Eosinophils % % Basophils % % Neutrophils # (1.3-7.7) k/uL Lymphocytes # (1.0-4.8) k/uL Monocytes # (0-1.0) k/uL Eosinophils # (0-0.7) k/uL Basophils # (0-0.2) k/uL PT (9.0-12.0) sec INR (<1.2) APTT (22.0-30.0) sec D-Dimer (<0.60) mg/L FEU Sodium (137-145) mmol/L Potassium (3.5-5.1) mmol/L Chloride (98-107) mmol/L Carbon Dioxide (22-30) mmol/L Anion Gap mmol/L BUN (7-17) mg/dL Creatinine (0.52-1.04) mg/dL Est GFR (CKD-EPI)AfAm (>60 ml/min/1.73 sqM) Est GFR (CKD-EPI)NonAf (>60 ml/min/1.73 sqM) Glucose (74-99) mg/dL Plasma Lactic Acid Rom (0.7-2.0) mmol/L Calcium (8.4-10.2) mg/dL Phosphorus (2.5-4.5) mg/dL Magnesium (1.6-2.3) mg/dL Total Bilirubin (0.2-1.3) mg/dL GGT (12-43) U/L AST (14-36) U/L ALT (9-52) U/L Alkaline Phosphatase (38-126) U/L Total Creatine Kinase (30-135) U/L CK-MB (CK-2) (0.0-2.4) ng/mL CK-MB (CK-2) Rel Index Troponin I (0.000-0.034) ng/mL NT-Pro-B Natriuret Pep pg/mL Total Protein (6.3-8.2) g/dL Albumin (3.5-5.0) g/dL Lipase (23-300) U/L Urine Color Light Yellow Urine Appearance Clear (Clear) Urine pH 8.0 (5.0-8.0) Ur Specific Glynn 1.026 (1.001-1.035) Urine Protein Negative (Negative) Urine Glucose (UA) Negative (Negative) Urine Ketones Negative (Negative) Urine Blood Trace H (Negative) Urine Nitrite Negative (Negative) Urine Bilirubin Negative (Negative) Urine Urobilinogen <2.0 (<2.0) mg/dL Ur Leukocyte Esterase Small H (Negative) Urine WBC 1 (0-5) /hpf Ur Squamous Epith Cells 1 (0-4) /hpf Urine Bacteria Rare H (None) /hpf Urine Mucus Rare H (None) /hpf - Radiology Data Radiology results: report reviewed (Abdomen pelvis chest and pelvis negative for acute disease, ultrasound pelvis shows free fluid in no acute cause, ultrasound gallbladder remains negative), image reviewed Disposition Clinical Impression: Abdominal pain, History of IBS Disposition: HOME SELF-CARE Condition: Good Instructions: Abdominal Pain (ED) Is patient prescribed a controlled substance at d/c from ED?: No Referrals: Marty Billy DO [Primary Care Provider] - 1-2 days
[2017-10-21] MEDS ORDERED: diphenhydrAMINE 50 MG/ML 1 ML VIAL IVP STA (18:08)
[2017-10-21] MEDS ORDERED: METOCLOPRAMIDE 5 MG/ML 2 ML VIAL IVP STA (18:10)
[2017-10-21 18:36] LABS: WBC 6.2 k/uL (3.8-10.6)
[2017-10-21 18:37] LABS: Basophils % (A) 1 %; Eosinophils # (A) 0.2 k/uL (0-0.7); Eosinophils % (A) 3 %; HCT 38.8 % (34.0-46.0); HGB 13.1 gm/dL (11.4-16.0); Lymphocytes # (A) 1.7 k/uL (1.0-4.8); Lymphocytes % (A) 28 %; MCH 30.4 pg (25.0-35.0); MCHC 33.8 g/dL (31.0-37.0); MCV 89.9 fL (80.0-100.0); Mean Platelet Volume 7.3; Monocytes # (A) 0.6 k/uL (0-1.0); Monocytes % (A) 9 %; Neutrophils # (A) 3.5 k/uL (1.3-7.7); Neutrophils % (A) 57 %; Platelet Count 260 k/uL (150-450); RBC 4.31 m/uL (3.80-5.40)
[2017-10-21 18:46] LABS: ALT 30 U/L (9-52); AST 22 U/L (14-36); Albumin 4.3 g/dL (3.5-5.0); Alkaline Phosphatase 41 U/L (38-126); Anion Gap 11 mmol/L; Blood Urea Nitrogen 10 mg/dL (7-17); Calcium 9.8 mg/dL (8.4-10.2); Carbon Dioxide 27 mmol/L (22-30); Chloride 102 mmol/L (98-107); GGT <10 U/L (12-43); Glucose 89 mg/dL (74-99); Lipase 79 U/L (23-300); Magnesium 1.8 mg/dL (1.6-2.3); Phosphorus 3.2 mg/dL (2.5-4.5); Potassium 3.8 mmol/L (3.5-5.1); Sodium 140 mmol/L (137-145); Total Bilirubin 0.2 mg/dL (0.2-1.3); Total Protein 6.6 g/dL (6.3-8.2)
[2017-10-21 18:50] LABS: INR 1.1 (<1.2); Partial Thromboplastin Time 23.2 sec (22.0-30.0); Prothrombin Time 10.5 sec (9.0-12.0)
[2017-10-21 18:57] LABS: Creatine Kinase 55 U/L (30-135)
[2017-10-21 19:09] LABS: Creatine Kinase MB <0.2 ng/mL (0.0-2.4); Troponin I <0.012 ng/mL (0.000-0.034)
[2017-10-21 19:20] LABS: D-Dimer 0.61 mg/L FEU (<0.60)
--- NOTE | 2017-10-21 19:29 | CT ---
EXAMINATION TYPE: CT angio chest DATE OF EXAM: 10/21/2017 7:13 PM COMPARISON: NONE HISTORY: Mid abdominal pain, radiating to right side abdomen and scapula. Chest pain with deep inspir ation. CT DLP: 178.8 mGycm Automated exposure control for dose reduction was used. CONTRAST: CTA scan of the thorax is performed with IV Contrast, patient injected with 100 mL of Isovue 370, pul monary embolism protocol. There are 3-D post processed images.. FINDINGS: The lungs are clear of infiltrate. There is no pleural effusion. There is no evidence of a pulmonary mass. There is no mediastinal adenopathy. There are no hilar masses. There is normal contrast opacifi cation of the pulmonary arteries. There is normal contrast opacification of the thoracic aorta. There is no evidence of aneurysm or dis section. The bony thorax is intact. IMPRESSION: NORMAL CT ANGIOGRAM OF THE CHEST. NO EVIDENCE OF PULMONARY EMBOLISM.
--- NOTE | 2017-10-21 19:34 | CT ---
EXAMINATION TYPE: CT abdomen pelvis w con DATE OF EXAM: 10/21/2017 COMPARISON: 01/28/2014 HISTORY: Mid abdominal pain, radiating to right side abdomen and scapula. Chest pain with deep inspir ation. CT DLP: 1452.4 mGycm Automated exposure control for dose reduction was used. TECHNIQUE: Helical acquisition of images was performed from the lung bases through the pelvis. CONTRAST: Performed without Oral Contrast and with IV Contrast, patient injected with mL of Isovue 370. FINDINGS: Lung bases are clear. There is no pleural effusion. Heart size is normal. Liver spleen pancreas gallbladder appear normal. Bile ducts are not dilated. There is no adrenal mass . The kidneys show satisfactory contrast opacification. There is no hydronephrosis. There is a 3 mm c alculus in the lower pole right kidney. There is 1 mm calculus anterior right kidney. Ureters are not dilated. There is free fluid in the cul-de-sac. Bladder distends smoothly. Uterus is anteverted. I s ee no bony destructive process. I see no intestinal wall thickening. There are no dilated loops. Appendix appears normal. IMPRESSION: THERE IS NEW FREE FLUID IN THE PELVIS COMPARED TO OLD EXAM. NONOBSTRUCTING SMALL RIGHT RENAL CALCULI. NORMAL APPENDIX. I DO NOT SEE A CAUSE FOR RIGHT-SIDED ABDOMINAL PAIN.
[2017-10-21 20:11] LABS: Appearance,Urine Clear (Clear); Bacteria,Urine Rare /hpf; Bilirubin,Urine Negative (Negative); Blood,Urine Trace (Negative); Color,Urine Light Yellow; Glucose,Urine (UA) Negative (Negative); Ketones,Urine Negative (Negative); Leukocyte Esterase,Urine Small (Negative); Mucus,Urine Rare /hpf; Nitrite,Urine Negative (Negative); Protein,Urine Negative (Negative); Specific Gravity,Urine 1.026 (1.001-1.035); Squamous Epithelial Cell,Urine 1 /hpf (0-4); Urobilinogen,Urine <2.0 mg/dL (<2.0); WBC,Urine 1 /hpf (0-5)
--- NOTE | 2017-10-21 21:17 | US ---
EXAMINATION TYPE: US gallbladder DATE OF EXAM: 10/21/2017 COMPARISON: NONE CLINICAL HISTORY: Pain. Epigastric pain radiating to the right side. Nausea EXAM MEASUREMENTS: Liver Length: 17.5 cm Gallbladder Wall: 0.3 cm CBD: 0.4 cm Right Kidney: 11.0 x 3.7 x 3.8 cm Pancreas: visualized portions appear wnl, limited evaluation due to overlying bowel content Liver: upper limits of normal in size Gallbladder: no evidence of stones, appears slightly contracted Evidence for sonographic Daniel's sign: yes CBD: wnl Right Kidney: dense echogenic area mid (possible stone) = 0.4cm IMPRESSION: No gallstones or dilated ducts. There is probably a nonobstructing 4 mm calculus in the i nterpolar right kidney.
--- NOTE | 2017-10-21 21:19 | US ---
EXAMINATION TYPE: US pelvic complete DATE OF EXAM: 10/21/2017 COMPARISON: NONE CLINICAL HISTORY: Pain. Right sided pain. Heavy, painful menses. Free fluid in cul-de-sac on recent C T TECHNIQUE: Transabdominal (TA). Patient refusing TV exam at this time Date of LMP: 10/14/17 EXAM MEASUREMENTS: Uterus: 8.7 x 4.2 x 5.7 cm Endometrial Stripe: 0.5 cm Right Ovary: 2.9 x 2.0 x 1.8 cm Left Ovary: 3.2 x 2.4 x 2.2 cm 1. Uterus: Anteverted appears wnl 2. Endometrium: appears wnl 3. Right Ovary: limited evaluation due to large amount of overlying bowel content, follicles noted 4. Left Ovary: follicles noted Spectral, color and waveform doppler imaging shows good arterial and venous flow within the ovaries ; there is no evidence for ovarian torsion. 5. Bilateral Adnexa: wnl 6. Posterior cul-de-sac: free fluid IMPRESSION: There is a small amount of free fluid in the cul-de-sac. No adnexal mass. Normal uterus a nd endometrium. No evidence of ovarian torsion.
[2017-10-21 22:29] VITALS: BP 117/59; PULSE 64; RESP 18; TEMP 98.3
== END 2017-10-21 22:10 | disposition home or self-care (01) ==
LOC: EC 17:45
DX: R10.13 Epigastric pain (principal); R10.11 Right upper quadrant pain; M25.511 Pain in right shoulder; R11.2 Nausea with vomiting, unspecified; R07.9 Chest pain, unspecified
CPT/HCPCS: 36415; 93005; 85379; 83880; 80053; 82550; 82553; 82977; 83605; 83690; 83735; 84100; 84484; 85025; 85610; 85730; 81001; 93975; 76856; 76705; 71275; 74177; 99285; 96374; 96375 ×3; 96361; J1200; J2765; J1885; J0131; Q9967

== ENCOUNTER → 2017-10-24 | Outpatient (CLI) | payer MEDICAID ==
--- NOTE | 2017-10-24 15:21 | NM ---
EXAMINATION TYPE: NM hepatobiliary w EF DATE OF EXAM: 10/24/2017 COMPARISON: Gallbladder ultrasound from 3 days ago HISTORY: Abdominal pain not further specified per order. Multiple symptoms including epigastric pain, diminished appetite, nausea and vomiting all per patient. TECHNIQUE: After the intravenous administration of 5.03 mCi Tc 99m Mebrofenin hepatobiliary scintigra phy is performed. Immediate images post injection. FINDINGS: There is satisfactory initial accumulation of tracer by the liver. The gallbladder is visualized wit hin 20 minutes. The small bowel activity is well seen even after 60 minutes. At one hour 8 ounces o f oral ensure plus is given to mimic CCK and gallbladder ejection fraction is calculated at 75 %, in the normal range. Patient did have some symptoms of nausea and pain after consuming oral Ensure. Ther efore there is no scintigraphic evidence of cystic or common bile duct obstruction to suggest acute c holecystitis or gallbladder dyskinesia. IMPRESSION: Exam is within normal limits.
== END | disposition home or self-care (01) ==
LOC: RADNMMAIN 13:07
PROVIDERS: ATTEND Emergency Medicine
DX: R10.84 Generalized abdominal pain (principal)
CPT/HCPCS: 78226; A9537

== ENCOUNTER 2018-03-12 19:13 | Emergency (ER) | payer MEDICAID ==
[2018-03-12 19:20] VITALS: RESP 18
[2018-03-12] MEDS ORDERED: ONDANSETRON 4 MG/2 ML VIAL IVP STA (19:52)
[2018-03-12] MEDS ORDERED: SODIUM CHLORIDE 0.9% 1,000 ML IV STA (19:52)
[2018-03-12] MEDS ORDERED: KETOROLAC 30 MG/ML 1 ML VIAL IVP STA (19:53)
--- NOTE | 2018-03-12 19:56 | ED ---
Nausea/Vomiting/Diarrhea HPI - General Chief complaint: Nausea/Vomiting/Diarrhea Stated complaint: poss UTI Time Seen by Provider: 03/12/18 19:32 Source: patient, RN notes reviewed, old records reviewed Mode of arrival: ambulatory Limitations: no limitations - History of Present Illness Initial comments: Patient is a 22-year-old female who presents emergency room today with chief complaint of onset of sore throat, severe body aches. Patient reports that she thought she would had a flareup of mono she's had in the past. Patient states she went to [facility], and she reports that she has severe body aches. He did test a urine sample there. Patient had positive ketones and bilirubin within her urine. She does have a history of gallbladder dysfunction. Patient had plan to have the gallbladder removed electively sometime this year. Patient states that she's had no right upper quadrant abdominal pain similar to her previous gallbladder pains. Patient had had also episodes of vomiting last night. Patient reports that at [facility] pressure was also told that she has a urinary tract infection, but denies any urinary symptoms including dysuria or hematuria. She denies any vaginal discharge. Urine test, rapid strep , influenza testing were negative at [facility] press earlier today. - Related Data Home Medications Medication Instructions Recorded Confirmed Minocycline HCl [Minocin] 100 mg PO DAILY 08/22/16 03/12/18 Acetaminophen Tab [Tylenol Tab] 650 mg PO ONCE PRN 03/12/18 03/12/18 Amitriptyline HCl [Elavil] 10 mg PO HS 03/12/18 03/12/18 Dicyclomine [Bentyl] 10 mg PO ACHS PRN 03/12/18 03/12/18 Ibuprofen [Motrin Ib] 400 mg PO ONCE PRN 03/12/18 03/12/18 Methylphenidate HCl [Concerta] 18 mg PO DAILY 03/12/18 03/12/18 Ondansetron [Zofran ODT] 4 mg PO Q8H PRN 03/12/18 03/12/18 Phenylephrine/Dm/Acetaminop/GG 1 - 2 tab PO Q6H PRN 03/12/18 03/12/18 [Tylenol Cold-Flu Severe Caplet] busPIRone HCL [Buspar] 7.5 mg PO BID 03/12/18 03/12/18 Previous Rx's Medication Instructions Recorded Lidocaine Viscous [Xylocaine 5 ml MUCOUS MEM TID #100 ml 03/12/18 Viscous 2%] Allergies Allergy/AdvReac Type Severity Reaction Status Date / Time No Known Allergies Allergy Verified 03/12/18 19:47 Review of Systems ROS Statement: Those systems with pertinent positive or pertinent negative responses have been documented in the HPI. ROS Other: All systems not noted in ROS Statement are negative. Past Medical History Past Medical History: No Reported History Additional Past Medical History / Comment(s): Pt states she fell of her horse about 4 months ago and hit her head and lost consciousness-she has been having headaches daily ever since, past abdominal pain-unknown cause, kidney stone- passed on her own, mononucleosis. History of Any Multi-Drug Resistant Organisms: None Reported Additional Past Surgical History / Comment(s): implanon-removed 1.5 years ago Additional Past Anesthesia/Blood Transfusion Reaction / Comment(s): Pt has never had anesthesia. Past Psychological History: No Psychological Hx Reported, ADD/ADHD, Anxiety, Depression Smoking Status: Never smoker Past Alcohol Use History: Occasional Past Drug Use History: None Reported - Past Family History Father Additional Family Medical History / Comment(s): Father has heart problems and may end up needing heart transplant. Mother Family Medical History: Hypertension Additional Family Medical History / Comment(s): Mother has had alot of benign breast biopsies. General Exam - General Exam Comments Initial Comments: 22-year-old female. Alert and oriented 3. Patient appears in no acute distress. Limitations: no limitations General appearance: alert, in no apparent distress Head exam: Present: atraumatic, normocephalic, normal inspection Eye exam: Present: normal appearance, PERRL, EOMI. Absent: scleral icterus, conjunctival injection, periorbital swelling ENT exam: Present: normal exam, mucous membranes moist. Absent: normal oropharynx (Edematous oropharynx) Neck exam: Present: normal inspection. Absent: tenderness, meningismus, lymphadenopathy Respiratory exam: Present: normal lung sounds bilaterally. Absent: respiratory distress, wheezes, rales, rhonchi, stridor Cardiovascular Exam: Present: regular rate, normal rhythm, normal heart sounds. Absent: systolic murmur, diastolic murmur, rubs, gallop, clicks GI/Abdominal exam: Present: soft, normal bowel sounds. Absent: distended, tenderness, guarding, rebound, rigid Neurological exam: Present: alert Psychiatric exam: Present: normal affect Skin exam: Present: warm, dry, intact, normal color. Absent: rash Course Vital Signs 03/12/18 19:16 Temperature 98.7 F Pulse Rate 96 Respiratory 18 Rate Blood Pressure 115/62 O2 Sat by Pulse 98 Oximetry Medical Decision Making - Medical Decision Making Patient is a 22-year-old female who presents today with onset of sore throat and body aches today. Sinemet express and was told to come here for dehydration. Patient was given IV fluids and lab work obtained. Given Zofran and Toradol. Patient's lab work shows mildly elevated white blood cell count of 13,000. Liver enzymes are normal. She is junk tenderness. Patient has slightly erythematous oropharynx. No laxity. Rapid strep was negative earlier today. 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 We will check IgM and IgG and antibodies. This time Patient will be discharged with Viscous Lidocaine prescription. Discussed following up with primary care physician. Alternating Motrin and Tylenol and Patient has Zofran at home to take. Discussed return primary's. Family and Patient agree to treatment plan will comply. Return parameters were discussed. - Lab Data Result diagrams: 03/12/18 20:13 03/12/18 20:13 Lab Results 03/12/18 03/12/18 03/12/18 Range/Units 20:13 20:13 20:13 WBC 13.4 H (3.8-10.6) k/uL RBC 4.41 (3.80-5.40) m/uL Hgb 13.9 (11.4-16.0) gm/dL Hct 39.7 (34.0-46.0) % MCV 89.9 (80.0-100.0) fL MCH 31.6 (25.0-35.0) pg MCHC 35.1 (31.0-37.0) g/dL RDW 11.6 (11.5-15.5) % Plt Count 240 (150-450) k/uL Neutrophils % 88 % Lymphocytes % 6 % Monocytes % 5 % Eosinophils % 0 % Basophils % 0 % Neutrophils # 11.8 H (1.3-7.7) k/uL Lymphocytes # 0.8 L (1.0-4.8) k/uL Monocytes # 0.6 (0-1.0) k/uL Eosinophils # 0.1 (0-0.7) k/uL Basophils # 0.0 (0-0.2) k/uL Sodium 138 (137-145) mmol/L Potassium 3.6 (3.5-5.1) mmol/L Chloride 104 (98-107) mmol/L Carbon Dioxide 24 (22-30) mmol/L Anion Gap 10 mmol/L BUN 10 (7-17) mg/dL Creatinine 0.64 (0.52-1.04) mg/dL Est GFR (CKD-EPI)AfAm >90 (>60 ml/min/1.73 sqM) Est GFR (CKD-EPI)NonAf >90 (>60 ml/min/1.73 sqM) Glucose 115 H (74-99) mg/dL Calcium 9.5 (8.4-10.2) mg/dL Total Bilirubin 0.6 (0.2-1.3) mg/dL AST 19 (14-36) U/L ALT 25 (9-52) U/L Alkaline Phosphatase 58 (38-126) U/L Total Protein 7.4 (6.3-8.2) g/dL Albumin 4.4 (3.5-5.0) g/dL Amylase 44 (30-110) U/L Lipase 47 (23-300) U/L Urine Color Yellow Urine Appearance Clear (Clear) Urine pH 6.0 (5.0-8.0) Ur Specific [place] 1.034 (1.001-1.035) Urine Protein 1+ H (Negative) Urine Glucose (UA) Negative (Negative) Urine Ketones 3+ H (Negative) Urine Blood Trace H (Negative) Urine Nitrite Negative (Negative) Urine Bilirubin 1+ H (Negative) Urine Urobilinogen 4.0 (<2.0) mg/dL Ur Leukocyte Esterase Trace H (Negative) Urine RBC 9 H (0-5) /hpf Urine WBC 5 (0-5) /hpf Ur Squamous Epith Cells 2 (0-4) /hpf Urine Bacteria Rare H (None) /hpf Urine Mucus Many H (None) /hpf Heterophile Antibody (Negative) 03/12/18 Range/Units 20:13 WBC (3.8-10.6) k/uL RBC (3.80-5.40) m/uL Hgb (11.4-16.0) gm/dL Hct (34.0-46.0) % MCV (80.0-100.0) fL MCH (25.0-35.0) pg MCHC (31.0-37.0) g/dL RDW (11.5-15.5) % Plt Count (150-450) k/uL Neutrophils % % Lymphocytes % % Monocytes % % Eosinophils % % Basophils % % Neutrophils # (1.3-7.7) k/uL Lymphocytes # (1.0-4.8) k/uL Monocytes # (0-1.0) k/uL Eosinophils # (0-0.7) k/uL Basophils # (0-0.2) k/uL Sodium (137-145) mmol/L Potassium (3.5-5.1) mmol/L Chloride (98-107) mmol/L Carbon Dioxide (22-30) mmol/L Anion Gap mmol/L BUN (7-17) mg/dL Creatinine (0.52-1.04) mg/dL Est GFR (CKD-EPI)AfAm (>60 ml/min/1.73 sqM) Est GFR (CKD-EPI)NonAf (>60 ml/min/1.73 sqM) Glucose (74-99) mg/dL Calcium (8.4-10.2) mg/dL Total Bilirubin (0.2-1.3) mg/dL AST (14-36) U/L ALT (9-52) U/L Alkaline Phosphatase (38-126) U/L Total Protein (6.3-8.2) g/dL Albumin (3.5-5.0) g/dL Amylase (30-110) U/L Lipase (23-300) U/L Urine Color Urine Appearance (Clear) Urine pH (5.0-8.0) Ur Specific [place] (1.001-1.035) Urine Protein (Negative) Urine Glucose (UA) (Negative) Urine Ketones (Negative) Urine Blood (Negative) Urine Nitrite (Negative) Urine Bilirubin (Negative) Urine Urobilinogen (<2.0) mg/dL Ur Leukocyte Esterase (Negative) Urine RBC (0-5) /hpf Urine WBC (0-5) /hpf Ur Squamous Epith Cells (0-4) /hpf Urine Bacteria (None) /hpf Urine Mucus (None) /hpf Heterophile Antibody Negative (Negative) Disposition Clinical Impression: Viral pharyngitis Disposition: HOME SELF-CARE Condition: Good Instructions: Acute Nausea and Vomiting (ED), Pharyngitis (ED) Additional Instructions: Patient advised to mix the viscous lidocaine with one part Benadryl and 1 part Maalox to coat the throat. Patient should alternate Motrin and Tylenol. Return to emergency department if any alarming signs or symptoms occur. Prescriptions: Lidocaine Viscous [Xylocaine Viscous 2%] 5 ml MUCOUS MEM TID #100 ml Is patient prescribed a controlled substance at d/c from ED?: No Referrals: Marty Billy DO [Primary Care Provider] - 1-2 days Time of Disposition: 21:16
[2018-03-12] MEDS ORDERED: SODIUM CHLORIDE 0.9% 1,000 ML IV SCH (20:00)
[2018-03-12 20:37] LABS: Basophils % (A) 0 %; Eosinophils # (A) 0.1 k/uL (0-0.7); Eosinophils % (A) 0 %; HCT 39.7 % (34.0-46.0); HGB 13.9 gm/dL (11.4-16.0); Lymphocytes # (A) 0.8 k/uL (1.0-4.8); Lymphocytes % (A) 6 %; MCH 31.6 pg (25.0-35.0); MCHC 35.1 g/dL (31.0-37.0); MCV 89.9 fL (80.0-100.0); Mean Platelet Volume 6.9; Monocytes # (A) 0.6 k/uL (0-1.0); Monocytes % (A) 5 %; Neutrophils # (A) 11.8 k/uL (1.3-7.7); Neutrophils % (A) 88 %; Platelet Count 240 k/uL (150-450); RBC 4.41 m/uL (3.80-5.40); RDW 11.6 % (11.5-15.5); WBC 13.4 k/uL (3.8-10.6)
[2018-03-12 20:39] LABS: Appearance,Urine Clear (Clear); Bacteria,Urine Rare /hpf; Bilirubin,Urine 1+ (Negative); Blood,Urine Trace (Negative); Color,Urine Yellow; Glucose,Urine (UA) Negative (Negative); Ketones,Urine 3+ (Negative); Leukocyte Esterase,Urine Trace (Negative); Mucus,Urine Many /hpf; Nitrite,Urine Negative (Negative); Protein,Urine 1+ (Negative); RBC,Urine 9 /hpf (0-5); Specific Gravity,Urine 1.034 (1.001-1.035); Squamous Epithelial Cell,Urine 2 /hpf (0-4); WBC,Urine 5 /hpf (0-5)
[2018-03-12 20:51] LABS: ALT 25 U/L (9-52); AST 19 U/L (14-36); Albumin 4.4 g/dL (3.5-5.0); Alkaline Phosphatase 58 U/L (38-126); Amylase 44 U/L (30-110); Anion Gap 10 mmol/L; Blood Urea Nitrogen 10 mg/dL (7-17); Calcium 9.5 mg/dL (8.4-10.2); Carbon Dioxide 24 mmol/L (22-30); Chloride 104 mmol/L (98-107); Glucose 115 mg/dL (74-99); Lipase 47 U/L (23-300); Potassium 3.6 mmol/L (3.5-5.1); Sodium 138 mmol/L (137-145); Total Bilirubin 0.6 mg/dL (0.2-1.3); Total Protein 7.4 g/dL (6.3-8.2)
[2018-03-12 21:39] VITALS: BP 116/78; PULSE 76; TEMP 97.4
[2018-03-13 20:15] LABS: EBV-VCA (IgG) 7.8 AI
== END 2018-03-12 21:20 | disposition home or self-care (01) ==
LOC: EC 19:13
DX: J02.8 Acute pharyngitis due to other specified organisms (principal); D72.829 Elevated white blood cell count, unspecified; F90.9 Attention-deficit hyperactivity disorder, unspecified type; F32.9 Major depressive disorder, single episode, unspecified; F41.9 Anxiety disorder, unspecified; Z79.899 Other long term (current) drug therapy
CPT/HCPCS: 36415; 86665 ×2; 80053; 86663; 82150; 83690; 85025; 86308; 81001; 86664; 99284; 96374; 96375; 96361; J2405; J1885

== ENCOUNTER → 2018-06-16 | Outpatient (CLI) | payer MEDICAID ==
[2018-06-16 17:25] LABS: Basophils % (A) 1 %; Eosinophils # (A) 0.1 k/uL (0-0.7); Eosinophils % (A) 1 %; HCT 44.8 % (34.0-46.0); HGB 14.4 gm/dL (11.4-16.0); Lymphocytes # (A) 1.4 k/uL (1.0-4.8); Lymphocytes % (A) 21 %; MCH 29.1 pg (25.0-35.0); MCHC 32.2 g/dL (31.0-37.0); MCV 90.5 fL (80.0-100.0); Mean Platelet Volume 7.5; Monocytes # (A) 0.5 k/uL (0-1.0); Monocytes % (A) 7 %; Neutrophils # (A) 4.3 k/uL (1.3-7.7); Neutrophils % (A) 67 %; Platelet Count 310 k/uL (150-450); RBC 4.95 m/uL (3.80-5.40); RDW 12.1 % (11.5-15.5); WBC 6.4 k/uL (3.8-10.6)
[2018-06-16 23:17] LABS: Albumin 4.9 g/dL (3.80-4.90); Albumin/Globulin Ratio 1.96 (1.60-3.17); Anion Gap 9.2 mmol/L (4.00-12.00); Calcium 9.5 mg/dL (8.7-10.3); Carbon Dioxide 24.8 mmol/L (21.6-31.8); Globulin 2.5 g/dL (1.6-3.3); Potassium 4.3 mmol/L (3.5-5.5); Total Bilirubin 0.5 mg/dL (0.3-1.2); Total Protein 7.4 g/dL (6.2-8.2)
[2018-06-16 23:25] LABS: Vitamin D 25 Hydroxy 23.9 ng/mL (30.0-100.0)
== END | disposition home or self-care (01) ==
LOC: LABMAIN 13:28
PROVIDERS: ATTEND Nurse Practitioner Family
DX: F43.21 Adjustment disorder with depressed mood (principal); K05.01 Acute gingivitis, non-plaque induced
CPT/HCPCS: 36415; 80053; 82180; 82306; 82607; 84443; 85025

== ENCOUNTER → 2018-10-09 | Outpatient (CLI) | payer MEDICAID ==
[2018-10-10 01:08] LABS: EBV-VCA (IgG) >8.0 AI
[2018-10-10 01:30] LABS: Streptolysin O Ab(ASO) <25 IU/mL (0-200)
[2018-10-10 05:09] LABS: Mycoplasma IgM Antibody 0.71 INDEX (<=0.90)
== END | disposition home or self-care (01) ==
LOC: LABWHC1 13:26
PROVIDERS: ATTEND Nurse Practitioner Family
DX: F43.21 Adjustment disorder with depressed mood (principal); F40.01 Agoraphobia with panic disorder; R41.840 Attention and concentration deficit
CPT/HCPCS: 36415; 86060; 86215; 86618; 86663; 86664; 86665; 86738; 87529

== ENCOUNTER → 2018-12-05 | Outpatient (CLI) | payer MEDICAID ==
[2018-12-05 21:37] LABS: Basophils # (A) 0.1 k/uL (0-0.2); Basophils % (A) 1 %; Eosinophils # (A) 0.1 k/uL (0-0.7); Eosinophils % (A) 1 %; HCT 43.3 % (34.0-46.0); HGB 14.3 gm/dL (11.4-16.0); Lymphocytes # (A) 2.2 k/uL (1.0-4.8); Lymphocytes % (A) 24 %; MCH 29.7 pg (25.0-35.0); MCHC 33.1 g/dL (31.0-37.0); MCV 89.9 fL (80.0-100.0); Mean Platelet Volume 6.7; Monocytes # (A) 0.8 k/uL (0-1.0); Monocytes % (A) 9 %; Neutrophils # (A) 5.8 k/uL (1.3-7.7); Neutrophils % (A) 63 %; Platelet Count 320 k/uL (150-450); RBC 4.81 m/uL (3.80-5.40); RDW 11.9 % (11.5-15.5); WBC 9.2 k/uL (3.8-10.6)
[2018-12-05 21:54] LABS: Partial Thromboplastin Time 27.1 sec (22.0-30.0); Prothrombin Time 10.4 sec (9.0-12.0)
== END | disposition home or self-care (01) ==
LOC: LABMAIN 20:59
PROVIDERS: ATTEND Family Medicine
DX: R23.3 Spontaneous ecchymoses (principal)
CPT/HCPCS: 36415; 85025; 85246; 85610; 85730

== ENCOUNTER 2019-03-12 20:01 | Emergency (ER) | payer MEDICAID, OTHER ==
--- NOTE | 2019-03-12 20:20 | ED ---
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 She presents today for concerns for an accidental needle stick on her left middle finger. Patient was stuck by a Vacutainer needle that was laying on a tray. Patient reports that she did wash her hands shortly after. Patient was concerned because the Patient moves she had the accident and a blood draw has had a history of blood transfusions. (Muna Clark) - Related Data Home Medications Medication Instructions Recorded Confirmed Minocycline HCl [Minocin] 100 mg PO DAILY 08/22/16 03/12/18 Acetaminophen Tab [Tylenol Tab] 650 mg PO ONCE PRN 03/12/18 03/12/18 Amitriptyline HCl [Elavil] 10 mg PO HS 03/12/18 03/12/18 Dicyclomine [Bentyl] 10 mg PO ACHS PRN 03/12/18 03/12/18 Ibuprofen [Motrin Ib] 400 mg PO ONCE PRN 03/12/18 03/12/18 Methylphenidate HCl [Concerta] 18 mg PO DAILY 03/12/18 03/12/18 Ondansetron [Zofran ODT] 4 mg PO Q8H PRN 03/12/18 03/12/18 Phenylephrine/Dm/Acetaminop/GG 1 - 2 tab PO Q6H PRN 03/12/18 03/12/18 [Tylenol Cold-Flu Severe Caplet] busPIRone HCL [Buspar] 7.5 mg PO BID 03/12/18 03/12/18 Previous Rx's Medication Instructions Recorded Lidocaine Viscous [Xylocaine 5 ml MUCOUS MEM TID #100 ml 03/12/18 Viscous 2%] Allergies Allergy/AdvReac Type Severity Reaction Status Date / Time No Known Allergies Allergy Verified 03/12/19 21:30 Review of Systems ROS Other: All systems not noted in ROS Statement are negative. <Muna Clark - Last Filed: 03/13/19 06:08> ROS Other: All systems not noted in ROS Statement are negative. <Cheryl Sherman - Last Filed: 03/15/19 01:09> ROS Statement: Those systems with pertinent positive or pertinent negative responses have been documented in the HPI. Past Medical History Past Medical History: No Reported History Additional Past Medical History / Comment(s): Pt states she fell of her horse about 4 months ago and hit her head and lost consciousness-she has been having headaches daily ever since, past abdominal pain-unknown cause, kidney stone- passed on her own, mononucleosis. History of Any Multi-Drug Resistant Organisms: None Reported Additional Past Surgical History / Comment(s): implanon-removed 1.5 years ago Additional Past Anesthesia/Blood Transfusion Reaction / Comment(s): Pt has never had anesthesia. Past Psychological History: No Psychological Hx Reported, ADD/ADHD, Anxiety, Depression Smoking Status: Never smoker Past Alcohol Use History: Occasional Past Drug Use History: None Reported - Past Family History Father Additional Family Medical History / Comment(s): Father has heart problems and may end up needing heart transplant. Mother Family Medical History: Hypertension Additional Family Medical History / Comment(s): Mother has had alot of benign breast biopsies. <Muna Clark - Last Filed: 03/13/19 06:08> General Exam General appearance: alert, in no apparent distress Head exam: Present: atraumatic, normocephalic, normal inspection Eye exam: Present: normal appearance, PERRL, EOMI. Absent: scleral icterus, conjunctival injection, periorbital swelling ENT exam: Present: normal exam Neck exam: Present: normal inspection. Absent: tenderness, meningismus, lymphadenopathy Respiratory exam: Present: normal lung sounds bilaterally. Absent: respiratory distress, wheezes, rales, rhonchi, stridor Cardiovascular Exam: Present: regular rate, normal rhythm, normal heart sounds. Absent: systolic murmur, diastolic murmur, rubs, gallop, clicks Extremities exam: Present: normal inspection, full ROM, normal capillary refill, other (small puncture wound of the left middle finger pad.). Absent: tenderness, pedal edema, joint swelling, calf tenderness Back exam: Present: normal inspection Neurological exam: Present: alert, oriented X3, CN II-XII intact <Muna Clark - Last Filed: 03/13/19 06:08> - General Exam Comments Initial Comments: 23-year-old female. Alert and oriented. Patient appears in no distress. (Muna Clark) Course Vital Signs 03/12/19 21:24 Temperature 98.2 F Pulse Rate 105 H Respiratory 16 Rate Blood Pressure 124/83 O2 Sat by Pulse 100 Oximetry Medical Decision Making <Muna Clark - Last Filed: 03/13/19 06:08> <Cheryl Sherman - Last Filed: 03/15/19 01:09> - Medical Decision Making Patient is a 23-year-old female, hep B vaccination. Accidental needle stick exposure work today. Patient consents to HIV and further testing and the sources blood was drawn. Sources results are pending. Case discussed with Dr. Ahuja. (Muna Clark) I was available for consultation in the emergency department. The history and physical exam were done by the midlevel provider. I was consulted for this patients care. I reviewed the case with the midlevel provider and based on their presentation of the patient, I agree with the assessment, medical decision making and plan of care as documented. Chart was dictated using [employer] dictation software. Attempts were made to correct any dictation errors however some typographical errors may persist. (Cheryl Sherman) Disposition Is patient prescribed a controlled substance at d/c from ED?: No Time of Disposition: 20:20 <Muna Clark - Last Filed: 03/13/19 06:08> <Cheryl Sherman - Last Filed: 03/15/19 01:09> Clinical Impression: Needle stick injury Disposition: HOME SELF-CARE Condition: Good Instructions (If sedation given, give patient instructions): Needle Stick Injuries (ED) Additional Instructions: Please follow up with [facility]. Please return to the emergency room if your symptoms increase or worsen or for any other concerns. Referrals: Alycia Lopez DO [Primary Care Provider] - 1-2 days
[2019-03-12 21:28] VITALS: BP 124/83; PULSE 105; RESP 16; TEMP 98.2
== END 2019-03-12 23:24 | disposition home or self-care (01) ==
LOC: EC 20:01
DX: S69.82XA Other specified injuries of left wrist, hand and finger(s), initial encounter (principal); F41.9 Anxiety disorder, unspecified; F32.9 Major depressive disorder, single episode, unspecified; F90.9 Attention-deficit hyperactivity disorder, unspecified type; Z79.899 Other long term (current) drug therapy; W46.1XXA Contact with contaminated hypodermic needle, initial encounter; Y93.89 Activity, other specified; Y92.69 Other specified industrial and construction area as the place of occurrence of the external cause; Y99.0 Civilian activity done for income or pay
CPT/HCPCS: 99283

== ENCOUNTER 2019-08-19 00:43 | Emergency (ER) | payer MEDICAID, OTHER ==
[2019-08-19 00:50] VITALS: TEMP 98.6
[2019-08-19] MEDS ORDERED: SODIUM CHLORIDE 0.9% 1,000 ML IV STA ×3 (01:06→03:04)
[2019-08-19] MEDS ORDERED: MORPHINE SULFATE 4 MG/ML SYRINGE IV STA (01:06)
[2019-08-19] MEDS ORDERED: ONDANSETRON 4 MG/2 ML VIAL IVP STA ×2 (01:06→03:04)
[2019-08-19] MEDS ORDERED: PANTOPRAZOLE 40 MG/10 ML VIAL IVP STA (01:06)
--- NOTE | 2019-08-19 01:07 | ED ---
Abdominal Pain HPI - General Chief Complaint: Abdominal Pain Stated Complaint: Poss kidney stone Time Seen by Provider: 08/19/19 01:01 Source: patient, RN notes reviewed, old records reviewed Mode of arrival: ambulatory Limitations: no limitations - History of Present Illness Initial Comments: This is a 23-year-old female DF for evaluation of severe abdominal pain pains lasting throughout the day sudden onset feels a prior history of kidney stones. Significant nausea and vomiting no appetite no diarrhea bleeding no vaginal bleeding patient recently off.. No recent travel history no known sick contacts no fevers. Patient has no history of abdominal surgery she states she does have some history of gallbladder disease but no prior surgery. Patient has been increasing all day despite Tylenol with no improvement in symptoms. MD Complaint: abdominal pain -: hour(s) Location: diffuse, suprapubic Radiation: R flank Migration to: suprapubic Severity: severe Severity scale (1-10): 8 Quality: stabbing, aching Consistency: constant Improves With: nothing Worsens With: nothing Associated Symptoms: nausea, vomiting - Related Data Home Medications Medication Instructions Recorded Confirmed Minocycline HCl [Minocin] 100 mg PO DAILY 08/22/16 03/12/18 Acetaminophen Tab [Tylenol Tab] 650 mg PO ONCE PRN 03/12/18 03/12/18 Amitriptyline HCl [Elavil] 10 mg PO HS 03/12/18 03/12/18 Dicyclomine [Bentyl] 10 mg PO ACHS PRN 03/12/18 03/12/18 Ibuprofen [Motrin Ib] 400 mg PO ONCE PRN 03/12/18 03/12/18 Methylphenidate HCl [Concerta] 18 mg PO DAILY 03/12/18 03/12/18 Ondansetron [Zofran ODT] 4 mg PO Q8H PRN 03/12/18 03/12/18 Phenylephrine/Dm/Acetaminop/GG 1 - 2 tab PO Q6H PRN 03/12/18 03/12/18 [Tylenol Cold-Flu Severe Caplet] busPIRone HCL [Buspar] 7.5 mg PO BID 03/12/18 03/12/18 Previous Rx's Medication Instructions Recorded Lidocaine Viscous [Xylocaine 5 ml MUCOUS MEM TID #100 ml 03/12/18 Viscous 2%] Tamsulosin [Flomax] 0.4 mg PO DAILY #7 cap 08/19/19 Allergies Allergy/AdvReac Type Severity Reaction Status Date / Time No Known Allergies Allergy Verified 08/19/19 00:49 Review of Systems ROS Statement: Those systems with pertinent positive or pertinent negative responses have been documented in the HPI. ROS Other: All systems not noted in ROS Statement are negative. Past Medical History Past Medical History: No Reported History Additional Past Medical History / Comment(s): Pt states she fell of her horse about 4 months ago and hit her head and lost consciousness-she has been having headaches daily ever since, past abdominal pain-unknown cause, kidney stone- passed on her own, mononucleosis. History of Any Multi-Drug Resistant Organisms: None Reported Additional Past Surgical History / Comment(s): implanon-removed 1.5 years ago Additional Past Anesthesia/Blood Transfusion Reaction / Comment(s): Pt has never had anesthesia. Past Psychological History: No Psychological Hx Reported, ADD/ADHD, Anxiety, Depression Smoking Status: Never smoker Past Alcohol Use History: Occasional Past Drug Use History: None Reported - Past Family History Father Additional Family Medical History / Comment(s): Father has heart problems and may end up needing heart transplant. Mother Family Medical History: Hypertension Additional Family Medical History / Comment(s): Mother has had alot of benign breast biopsies. General Exam Limitations: no limitations General appearance: alert, in no apparent distress Head exam: Present: atraumatic, normocephalic, normal inspection Eye exam: Present: normal appearance, PERRL, EOMI. Absent: scleral icterus, conjunctival injection, periorbital swelling ENT exam: Present: normal exam, mucous membranes moist Neck exam: Present: normal inspection. Absent: tenderness, meningismus, lymphadenopathy Respiratory exam: Present: normal lung sounds bilaterally. Absent: respiratory distress, wheezes, rales, rhonchi, stridor Cardiovascular Exam: Present: regular rate, normal rhythm, normal heart sounds. Absent: systolic murmur, diastolic murmur, rubs, gallop, clicks GI/Abdominal exam: Present: soft, normal bowel sounds. Absent: distended, tenderness, guarding, rebound, rigid Extremities exam: Present: normal inspection, full ROM, normal capillary refill. Absent: tenderness, pedal edema, joint swelling, calf tenderness Back exam: Present: normal inspection Neurological exam: Present: alert, oriented X3, CN II-XII intact Psychiatric exam: Present: normal affect, normal mood Skin exam: Present: warm, dry, intact, normal color. Absent: rash Course Vital Signs 08/19/19 08/19/19 00:48 03:32 Temperature 98.6 F Pulse Rate 95 74 Respiratory 20 18 Rate Blood Pressure 108/58 114/66 O2 Sat by Pulse 98 96 Oximetry - Reevaluation(s) Reevaluation #1: 08/19/19 01:50 Record is reviewed Pain difficulty could to control it is no currently controlled Medical Decision Making - Medical Decision Making 23 female to the ER for evaluation of abdominal pain. Patient has kidney stones pain is controlled of kidney stones and patient can be discharged home - Lab Data Result diagrams: 08/19/19 01:20 08/19/19 01:20 Lab Results 08/19/19 08/19/19 08/19/19 Range/Units 01:20 01:20 01:20 WBC 14.4 H (3.8-10.6) k/uL RBC 4.74 (3.80-5.40) m/uL Hgb 14.0 (11.4-16.0) gm/dL Hct 41.8 (34.0-46.0) % MCV 88.2 (80.0-100.0) fL MCH 29.5 (25.0-35.0) pg MCHC 33.5 (31.0-37.0) g/dL RDW 12.0 (11.5-15.5) % Plt Count 275 (150-450) k/uL Neutrophils % 87 % Lymphocytes % 6 % Monocytes % 6 % Eosinophils % 0 % Basophils % 0 % Neutrophils # 12.5 H (1.3-7.7) k/uL Lymphocytes # 0.9 L (1.0-4.8) k/uL Monocytes # 0.8 (0-1.0) k/uL Eosinophils # 0.0 (0-0.7) k/uL Basophils # 0.0 (0-0.2) k/uL Sodium 135 L (137-145) mmol/L Potassium 3.9 (3.5-5.1) mmol/L Chloride 102 (98-107) mmol/L Carbon Dioxide 25 (22-30) mmol/L Anion Gap 8 mmol/L BUN 13 (7-17) mg/dL Creatinine 1.11 H (0.52-1.04) mg/dL Est GFR (CKD-EPI)AfAm 81 (>60 ml/min/1.73 sqM) Est GFR (CKD-EPI)NonAf 70 (>60 ml/min/1.73 sqM) Glucose 119 H (74-99) mg/dL Plasma Lactic Acid Rom 1.3 (0.7-2.0) mmol/L Calcium 9.5 (8.4-10.2) mg/dL Phosphorus 2.5 (2.5-4.5) mg/dL Magnesium 1.9 (1.6-2.3) mg/dL Total Bilirubin 0.6 (0.2-1.3) mg/dL AST 24 (14-36) U/L ALT 12 (4-34) U/L Alkaline Phosphatase 44 (38-126) U/L Total Protein 7.3 (6.3-8.2) g/dL Albumin 4.5 (3.5-5.0) g/dL Amylase 47 (30-110) U/L Lipase 73 (23-300) U/L Urine Color Urine Appearance (Clear) Urine pH (5.0-8.0) Ur Specific [place] (1.001-1.035) Urine Protein (Negative) Urine Glucose (UA) (Negative) Urine Ketones (Negative) Urine Blood (Negative) Urine Nitrite (Negative) Urine Bilirubin (Negative) Urine Urobilinogen (<2.0) mg/dL Ur Leukocyte Esterase (Negative) Urine RBC (0-5) /hpf Urine WBC (0-5) /hpf Ur Squamous Epith Cells (0-4) /hpf Amorphous Sediment (None) /hpf Urine Bacteria (None) /hpf Hyaline Casts (0-2) /lpf Urine Mucus (None) /hpf Urine HCG, Qual (Not Detectd) 08/19/19 08/19/19 Range/Units 02:22 02:22 WBC (3.8-10.6) k/uL RBC (3.80-5.40) m/uL Hgb (11.4-16.0) gm/dL Hct (34.0-46.0) % MCV (80.0-100.0) fL MCH (25.0-35.0) pg MCHC (31.0-37.0) g/dL RDW (11.5-15.5) % Plt Count (150-450) k/uL Neutrophils % % Lymphocytes % % Monocytes % % Eosinophils % % Basophils % % Neutrophils # (1.3-7.7) k/uL Lymphocytes # (1.0-4.8) k/uL Monocytes # (0-1.0) k/uL Eosinophils # (0-0.7) k/uL Basophils # (0-0.2) k/uL Sodium (137-145) mmol/L Potassium (3.5-5.1) mmol/L Chloride (98-107) mmol/L Carbon Dioxide (22-30) mmol/L Anion Gap mmol/L BUN (7-17) mg/dL Creatinine (0.52-1.04) mg/dL Est GFR (CKD-EPI)AfAm (>60 ml/min/1.73 sqM) Est GFR (CKD-EPI)NonAf (>60 ml/min/1.73 sqM) Glucose (74-99) mg/dL Plasma Lactic Acid Rom (0.7-2.0) mmol/L Calcium (8.4-10.2) mg/dL Phosphorus (2.5-4.5) mg/dL Magnesium (1.6-2.3) mg/dL Total Bilirubin (0.2-1.3) mg/dL AST (14-36) U/L ALT (4-34) U/L Alkaline Phosphatase (38-126) U/L Total Protein (6.3-8.2) g/dL Albumin (3.5-5.0) g/dL Amylase (30-110) U/L Lipase (23-300) U/L Urine Color Dark Yellow Urine Appearance Cloudy H (Clear) Urine pH 7.5 (5.0-8.0) Ur Specific [place] 1.013 (1.001-1.035) Urine Protein Negative (Negative) Urine Glucose (UA) Negative (Negative) Urine Ketones 3+ H (Negative) Urine Blood Trace H (Negative) Urine Nitrite Positive H (Negative) Urine Bilirubin 1+ H (Negative) Urine Urobilinogen 2.0 (<2.0) mg/dL Ur Leukocyte Esterase Negative (Negative) Urine RBC 27 H (0-5) /hpf Urine WBC 3 (0-5) /hpf Ur Squamous Epith Cells 1 (0-4) /hpf Amorphous Sediment Rare H (None) /hpf Urine Bacteria Rare H (None) /hpf Hyaline Casts 1 (0-2) /lpf Urine Mucus Rare H (None) /hpf Urine HCG, Qual Not Detected (Not Detectd) - Radiology Data Radiology results: report reviewed (CT head and pelvis positive for kidney stones ultrasound pelvis negative for acute disease), image reviewed Disposition Clinical Impression: Kidney stone, Left ureteral calculus Disposition: HOME SELF-CARE Condition: Good Instructions (If sedation given, give patient instructions): Kidney Stones (ED) Prescriptions: Tamsulosin [Flomax] 0.4 mg PO DAILY #7 cap Is patient prescribed a controlled substance at d/c from ED?: No Referrals: Ricardo Lopez MD [Primary Care Provider] - 1-2 days
[2019-08-19 01:30] LABS: Basophils % (A) 0 %; Eosinophils % (A) 0 %; HCT 41.8 % (34.0-46.0); Lymphocytes # (A) 0.9 k/uL (1.0-4.8); Lymphocytes % (A) 6 %; MCH 29.5 pg (25.0-35.0); MCHC 33.5 g/dL (31.0-37.0); MCV 88.2 fL (80.0-100.0); Mean Platelet Volume 7.5; Monocytes # (A) 0.8 k/uL (0-1.0); Monocytes % (A) 6 %; Neutrophils # (A) 12.5 k/uL (1.3-7.7); Neutrophils % (A) 87 %; Platelet Count 275 k/uL (150-450); RBC 4.74 m/uL (3.80-5.40); WBC 14.4 k/uL (3.8-10.6)
[2019-08-19 02:11] LABS: Albumin 4.5 g/dL (3.5-5.0); Calcium 9.5 mg/dL (8.4-10.2); Magnesium 1.9 mg/dL (1.6-2.3); Phosphorus 2.5 mg/dL (2.5-4.5); Potassium 3.9 mmol/L (3.5-5.1); Total Bilirubin 0.6 mg/dL (0.2-1.3); Total Protein 7.3 g/dL (6.3-8.2)
--- NOTE | 2019-08-19 02:14 | US ---
EXAMINATION TYPE: US pelvis complete transvag DATE OF EXAM: 08/19/2019 COMPARISON: US 2018 CLINICAL HISTORY: torsion. Pelvic pain x 1 day, N/V TECHNIQUE: . Transabdominal sonographic images of the pelvis were acquired. Transvaginal sonographi c images were medically necessary to better assess the following anatomy: ovaries Date of LMP: 2 to 3 weeks ago EXAM MEASUREMENTS: Uterus: 9.3 x 4.2 x 5.2 cm Endometrial Stripe: 1.1 cm Right Ovary: 3.4 x 1.7 x 2.5 cm Left Ovary: 3.2 x 2.5 x 3.4 cm 1. Uterus: anteverted 2. Endometrium: small amount of fluid in endocervical canal 3. Right Ovary: multiple follicles 4. Left Ovary: 1.8cm cystic area Spectral, color and waveform doppler imaging shows good arterial and venous flow within the left ov nataliya and good arterial flow within the right ovary; unable to obtain venous flow within the right ovar y. 5. Bilateral Adnexa: wnl 6. Posterior cul-de-sac: free fluid IMPRESSION: There is small amount of free fluid in the cul-de-sac. No evidence of ovarian torsion. Normal uterus and endometrium.
[2019-08-19] MEDS ORDERED: MORPHINE SULFATE 4 MG/ML SYRINGE IVP STA (02:21)
--- NOTE | 2019-08-19 02:52 | CT ---
EXAMINATION TYPE: CT abdomen pelvis wo con DATE OF EXAM: 08/19/2019 COMPARISON: 10/21/2017 HISTORY: Flank pain CT DLP: 395.5 mGycm Automated exposure control for dose reduction was used. Images were obtained without contrast from the diaphragm to the floor the pelvis. Lung bases are clear. There is no pleural effusion. There is no pericardial effusion. Heart size is n ormal. Liver spleen pancreas stomach gallbladder appear normal. Bile ducts are not dilated. There is no adre nal mass. There is moderate left-sided hydronephrosis and hydroureter. There is 5 mm obstructing calculus in th e distal left ureter. Bladder distends smoothly. There is small amount of free fluid in the cul-de-sa c. Uterus is anteverted. There is no inguinal hernia. There is no evidence of a pelvic mass. The right kidney shows no hydronephrosis. There are 2 small calculi in the right kidney that measure 1 to 2 mm. There is no retroperitoneal adenopathy. There is 2 mm calculus interpolar left kidney. There is no mesenteric edema. There is no ascites or free air. There is no sign of a bowel obstructio n. Appendix is not definitely seen. There is no sign of thickened appendix. Lumbar vertebra have norm al spacing and alignment. Bony pelvis is intact. IMPRESSION: Obstructing calculus distal left ureter with left-sided hydronephrosis and hydroureter. Nonobstructing tiny right renal calculi. Minimal free fluid in the pelvis. Renal obstruction is new compared to old exam. Free fluid in the pelvis decreased compared to old anya haro
[2019-08-19 02:55] LABS: Amorphous Sediment,Urine Rare /hpf; Appearance,Urine Cloudy (Clear); Bacteria,Urine Rare /hpf; Bilirubin,Urine 1+ (Negative); Blood,Urine Trace (Negative); Color,Urine Dark Yellow; Glucose,Urine (UA) Negative (Negative); Hyaline Casts,Urine 1 /lpf (0-2); Ketones,Urine 3+ (Negative); Leukocyte Esterase,Urine Negative (Negative); Mucus,Urine Rare /hpf; Nitrite,Urine Positive (Negative); PH, Urine 7.5 (5.0-8.0); Protein,Urine Negative (Negative); RBC,Urine 27 /hpf (0-5); Specific Gravity,Urine 1.013 (1.001-1.035); Squamous Epithelial Cell,Urine 1 /hpf (0-4); WBC,Urine 3 /hpf (0-5)
[2019-08-19] MEDS ORDERED: TAMSULOSIN 0.4 MG CAP.ER.24H PO STA (02:57)
[2019-08-19] MEDS ORDERED: KETOROLAC 30 MG/ML 1 ML VIAL IVP STA (02:57)
[2019-08-19] MEDS ORDERED: ACET/COD 300 MG/30 MG STARTER PACK 6 TAB BTL PO STA (03:04)
[2019-08-19] MEDS ORDERED: Acetaminophen-Codeine 300-30mg TAB PO STA (03:04)
[2019-08-19] MEDS ORDERED: HYDROmorphone 1 MG/ML 1 ML SYRINGE IVP STA (03:15)
[2019-08-19 03:33] VITALS: BP 114/66; PULSE 74; RESP 18
== END 2019-08-19 04:23 | disposition home or self-care (01) ==
LOC: EC 00:43
DX: N20.2 Calculus of kidney with calculus of ureter (principal); F90.9 Attention-deficit hyperactivity disorder, unspecified type; F41.9 Anxiety disorder, unspecified; F32.9 Major depressive disorder, single episode, unspecified; Z79.899 Other long term (current) drug therapy
CPT/HCPCS: 99285; 96374; 96375 ×4; 96376 ×2; 96361 ×3; 36415; 80053; 82150; 83605; 83690; 83735; 84100; 85025; 81001; 81025; 87086; 93975; 76856; 76830; 74176; J2270; J2405; J1885; J1170; C9113

== ENCOUNTER → 2019-08-23 | Outpatient (CLI) | payer MEDICAID ==
--- NOTE | 2019-08-23 19:41 | XR ---
EXAMINATION TYPE: XR abdomen 1V DATE OF EXAM: 08/23/2019 Comparison: 10/19/2017 Clinical History: 23-year-old female with left side pain Findings: Supine imaging limited for assessment of free air. Moderate stool burden. No dilated small bowel loops. 5 mm calcific density in the left side of the pelvis not seen on the prior radiograph corresponding t o the distal ureteral calculus seen on 08/19/2019 CT. Impression: 1. Nonobstructive bowel gas pattern. 2. Persistent 5 mm distal left ureteral calculus.
== END | disposition home or self-care (01) ==
LOC: RADXRMAIN 19:16
PROVIDERS: ATTEND Urology
DX: N20.1 Calculus of ureter (principal)
CPT/HCPCS: 74018